=== PATIENT | male | born 1990 | race Caucasian/White ===

== ENCOUNTER 2021-09-13 19:40 | Inpatient (IN) ==
[2021-09-13] MEDS ORDERED: LORazepam 1 MG TAB PO STA (20:03)
[2021-09-13 20:30] LABS: Basophils # (auto) 0.02 K/uL (0-0.2); Basophils % (auto) 0.3 %; Eosinophils # (auto) 0.05 K/uL (0-0.50); Eosinophils % (auto) 0.7 %; Hematocrit (blood only) 42.6 % (40.1-51.0); Hemoglobin 15.4 g/dl (14.0-18.0); Immature Granulocytes # (auto) 0.01 K/uL (0.00-0.02); Immature Granulocytes % (auto) 0.1 %; Lymphocytes # (auto) 2.56 K/uL (1.2-3.4); Lymphocytes % (auto) 34.9 %; Mean Corpuscular Hgb Conc 36.2 g/dL (32.0-36.0); Mean Corpuscular Volume 85.9 fL (80.0-100.0); Mean Platelet Volume 9.1 fL (9.4-12.4); Monocytes # (auto) 0.74 K/uL (0.24-0.82); Monocytes % (auto) 10.1 %; Neutrophils # (auto) 3.96 K/uL (1.4-6.5); Neutrophils % (auto) 53.9 %; Platelet Count 248 K/uL (130-400); RDW Coefficient of Variation 11.9 % (11.5-14.5); RDW Standard Deviation 37.2 fL (36.4-46.3); Red Blood Count 4.96 M/uL (4.63-6.08); White Blood Count 7.34 K/ul (4.8-10.8)
--- NOTE | 2021-09-13 20:30 | Emergency Department Note ---
Impression & Plan Mood disorder ED Provider Note INFORMANT: Patient ED PROVIDER(S): Matt Mcfarland MD CHIEF COMPLAINT: Mental health evaluation PLAN: Disposition: Admitted Condition: Good Outpatient prescription management: none Referral: None MEDICAL DECISION MAKING: Patient presented because of anxiety, feeling very stressed and having suicidal thoughts. Blood work was done. Urinalysis performed. Patient was given an oral dose of Ativan as he was extremely anxious. he was evaluated by the ER onsite case manager. The patient had unremarkable laboratory studies. He felt better after the Ativan and onsite case manager evaluation. We discussed inpatient treatment and patient was in agreement. 3 S. was consulted. Patient was evaluated and then accepted for voluntary admission. Triage Nursing notes reviewed and agree them. Vital Signs: reviewed and remarkable for no significant abnormalities Differential diagnosis: Mood disorder, infection, hypoglycemia, electrolyte abnormalities, cardiac sources, intracerebral event, toxicologic, trauma, neurologic, as well as other pathologies. Diagnostics interpreted by me: ECG: none Cardiac Monitoring: none Imaging studies: Deferred HPI: The patient is a 31year old male who presents to the Emergency Room with complaints of anxiety and suicidal ideation. This started over the last week and is worsening. The patient also notes the following associated symptoms, poor sleep, anxiety, racing thoughts, poor p.o. intake. The patient has found no relieving factors. Current pain is rated as 0/10. Patient states he was not eating or sleeping well. He had a syncopal event and had an ER evaluation for that 4 days ago. No significant findings were noted. Pt denies recurrent LOC, headache, fevers, chills, diaphoresis, visual changes, neck pain, chest pain, breathing difficulties, nausea, vomiting, abdominal pain, back pain, melena, hematochezia, urinary symptoms, numbness, weakness, lymphadenopathy, rash, or other complaints. ROS: See above HPI for pertinent positives & negatives. A total of 10 systems reviewed and were otherwise negative. PAST MEDICAL HISTORY:See Below , syncope PAST SURGICAL HISTORY:See Below, FAMILY HISTORY:See Below SOCIAL HISTORY:See Below, employed as a EMPLOYMENT PROGRAMS ANALYST HOME MEDICATIONS:See Below ALLERGIES:See Below VITALS:See Below PHYSICAL EXAMINATION: GENERAL: Awake, alert, very anxious-appearing, in no distress HENT: Normocephalic, atraumatic. Oropharynx unremarkable. EYES: Normal conjunctiva. Sclera non-icteric. NECK: Inspection normal. Non-tender. Supple. No nuchal rigidity. FROM. No masses. RESPIRATORY: Clear to auscultation. No wheezes. No rales. Normal respiratory ef fort. CARDIAC: Normal rate. Normal rhythm. No murmurs. No rubs. Extremities warm and well perfused. Pulses equal. No JVD. GI: Soft, non-distended. No tenderness to palpation. No rebound or guarding. No masses. RECTAL: Deferred. MUSCULOSKELETAL: Atraumatic. Chest examination reveals no tenderness. The back is symmetrical on inspection without obvious abnormality. There is no CVA tenderness to palpation. No joint edema. LOWER EXTREMITIES: Calves are equal size bilaterally and non-tender. No edema. No discoloration. NEURO: Normal sensorium. No sensory or motor deficits noted. SKIN: No rash or jaundice noted. EYE: Anxious mood. Depressed appearing. Positive SI. No HI. No hallucinations or delusions. Matt Mcfarland MD Past Med/Surg History Medical History No pertinent past medical history Social History Smoking Status: Never smoker Preferred Language: Ethiopian Communication Ability: Effective Hat Lining Paster Required: No Beliefs That Will Affect Care: None Feels Safe at Home: Yes Assistive Devices: Glasses Allergies Allergies Allergy/AdvReac Type Severity Reaction Status Date / Time No Known Allergies Allergy Verified 09/13/21 21:11 Home Meds Home Medications Medication Instructions Recorded Confirmed paroxetine HCl 20 mg tablet 20 mg PO QS 09/13/21 09/13/21 Results & Data (ED) Vital Signs Vital Signs - 24 hr 09/13/21 19:42 09/13/21 21:57 Temperature 37.3 C Temperature Source Temporal Artery Scan Pulse Rate 97 H Pulse Rate [Left Finger] 79 Pulse Rhythm Regular Pulse Rhythm [Left Finger] Regular Pulse Strength Normal Pulse Strength [Left Finger] Normal Respiratory Rate 17 16 Respiratory Effort / Characteristics Non-Labored Spontaneous Non-Labored Spontaneous Respiratory Depth Normal Normal Respiratory Pattern Regular Regular Blood Pressure 145/87 H Blood Pressure [Right Arm] 124/90 Blood Pressure Mean 106 Blood Pressure Mean [Right Arm] 101 Blood Pressure Position Sitting Blood Pressure Position [Right Arm] Lying Pulse Oximetry 96 98 Oxygen Delivery Method Room Air Room Air Sepsis Recent Fever Within 48 Hours No Sepsis New/Unexplained Change in Mental Status N/A Sepsis Action Taken by Nursing No Action Required Laboratory Data Result diagrams: 09/13/21 20:14 09/13/21 20:14 Lab Results 09/13/21 09/13/21 09/13/21 Range/Units 20:14 20:14 20:14 WBC 7.34 (4.8-10.8) K/ul RBC 4.96 (4.63-6.08) M/uL Hgb 15.4 (14.0-18.0) g/dl Hct 42.6 (40.1-51.0) % MCV 85.9 (80.0-100.0) fL MCH 31.0 (25.0-34.0) pg MCHC 36.2 H (32.0-36.0) g/dL RDW Std Deviation 37.2 (36.4-46.3) fL RDW Coeff of Jay 11.9 (11.5-14.5) % Plt Count 248 (130-400) K/uL MPV 9.1 L (9.4-12.4) fL Immature Gran % (Auto) 0.1 % Neut % (Auto) 53.9 % Lymph % (Auto) 34.9 % [place] % (Auto) 10.1 % Eos % (Auto) 0.7 % Baso % (Auto) 0.3 % Neut # (Auto) 3.96 (1.4-6.5) K/uL Lymph # (Auto) 2.56 (1.2-3.4) K/uL [place] # (Auto) 0.74 (0.24-0.82) K/uL Eos # (Auto) 0.05 (0-0.50) K/uL Baso # (Auto) 0.02 (0-0.2) K/uL Immature Gran # (Auto) 0.01 (0.00-0.02) K/uL Sodium 139 (136-145) mmol/L Potassium 3.5 (3.5-5.1) mmol/L Chloride 108 H (98-107) mmol/L Carbon Dioxide 22 (21-32) mmol/L Anion Gap 9 (3-11) BUN 13 (6-23) mg/dl Creatinine 0.95 (0.6-1.4) mg/dl Est Cr Clr Drug Dosing 60.5 ml/min Est GFR ( Amer) 124.9 ml/min Est GFR (Non-Af Amer) 107.7 ml/min BUN/Creatinine Ratio 13.7 (10-20) Glucose 96 (70-99(Fasting)) mg/dl Calcium 8.9 (8.5-10.1) mg/dl Total Bilirubin 0.8 (0.2-1.0) mg/dl AST 16 (13-39) U/L ALT 13 (7-52) U/L Alkaline Phosphatase 47 (34-104) U/L Total Protein 7.4 (6.0-8.3) gm/dl Albumin 4.6 (3.4-5.0) gm/dl Globulin 2.8 (2.5-4.0) gm/dl Albumin/Globulin Ratio 1.6 (0.9-2) TSH 1.552 (0.300-4.500) uIu/ml Urine Color Urine Appearance (Clear) Urine pH (4.5-7.5) Ur Specific [place] (1.000-1.030) Urine Protein (Negative) Urine Glucose (UA) (Negative) Urine Ketones (Negative) Urine Blood (Negative) Urine Nitrite (Negative) Urine Bilirubin (Negative) Urine Urobilinogen (Negative) Ur Leukocyte Esterase (Negative) Salicylates (3.0-30) mg/dl Urine Opiates Screen (Neg) Ur Methadone, Qual (Neg) Acetaminophen (10-30) ug/ml Urine Barbiturates (Neg) Ur Phencyclidine (PCP) (Neg) U Amphetamin/Meth Scrn (Neg) MDMA (Ecstasy) Screen (Neg) U Benzodiazepines Scrn (Neg) Ur Cocaine Metabolite (Neg) U Marijuana (THC) Screen (Neg) Ethyl Alcohol mg/dL (<10.0) mg/dl SARS-CoV-2, RNA, NAAT (NEGATIVE) 09/13/21 09/13/21 09/13/21 Range/Units 20:14 20:14 20:14 WBC (4.8-10.8) K/ul RBC (4.63-6.08) M/uL Hgb (14.0-18.0) g/dl Hct (40.1-51.0) % MCV (80.0-100.0) fL MCH (25.0-34.0) pg MCHC (32.0-36.0) g/dL RDW Std Deviation (36.4-46.3) fL RDW Coeff of Jay (11.5-14.5) % Plt Count (130-400) K/uL MPV (9.4-12.4) fL Immature Gran % (Auto) % Neut % (Auto) % Lymph % (Auto) % [place] % (Auto) % Eos % (Auto) % Baso % (Auto) % Neut # (Auto) (1.4-6.5) K/uL Lymph # (Auto) (1.2-3.4) K/uL [place] # (Auto) (0.24-0.82) K/uL Eos # (Auto) (0-0.50) K/uL Baso # (Auto) (0-0.2) K/uL Immature Gran # (Auto) (0.00-0.02) K/uL Sodium (136-145) mmol/L Potassium (3.5-5.1) mmol/L Chloride (98-107) mmol/L Carbon Dioxide (21-32) mmol/L Anion Gap (3-11) BUN (6-23) mg/dl Creatinine (0.6-1.4) mg/dl Est Cr Clr Drug Dosing ml/min Est GFR ( Amer) ml/min Est GFR (Non-Af Amer) ml/min BUN/Creatinine Ratio (10-20) Glucose (70-99(Fasting)) mg/dl Calcium (8.5-10.1) mg/dl Total Bilirubin (0.2-1.0) mg/dl AST (13-39) U/L ALT (7-52) U/L Alkaline Phosphatase (34-104) U/L Total Protein (6.0-8.3) gm/dl Albumin (3.4-5.0) gm/dl Globulin (2.5-4.0) gm/dl Albumin/Globulin Ratio (0.9-2) TSH (0.300-4.500) uIu/ml Urine Color Urine Appearance (Clear) Urine pH (4.5-7.5) Ur Specific [place] (1.000-1.030) Urine Protein (Negative) Urine Glucose (UA) (Negative) Urine Ketones (Negative) Urine Blood (Negative) Urine Nitrite (Negative) Urine Bilirubin (Negative) Urine Urobilinogen (Negative) Ur Leukocyte Esterase (Negative) Salicylates < 3.0 L (3.0-30) mg/dl Urine Opiates Screen (Neg) Ur Methadone, Qual (Neg) Acetaminophen < 3 L (10-30) ug/ml Urine Barbiturates (Neg) Ur Phencyclidine (PCP) (Neg) U Amphetamin/Meth Scrn (Neg) MDMA (Ecstasy) Screen (Neg) U Benzodiazepines Scrn (Neg) Ur Cocaine Metabolite (Neg) U Marijuana (THC) Screen (Neg) Ethyl Alcohol mg/dL < 10.0 (<10.0) mg/dl SARS-CoV-2, RNA, NAAT NEGATIVE (NEGATIVE) 09/13/21 09/13/21 Range/Units 20:20 20:20 WBC (4.8-10.8) K/ul RBC (4.63-6.08) M/uL Hgb (14.0-18.0) g/dl Hct (40.1-51.0) % MCV (80.0-100.0) fL MCH (25.0-34.0) pg MCHC (32.0-36.0) g/dL RDW Std Deviation (36.4-46.3) fL RDW Coeff of Jay (11.5-14.5) % Plt Count (130-400) K/uL MPV (9.4-12.4) fL Immature Gran % (Auto) % Neut % (Auto) % Lymph % (Auto) % [place] % (Auto) % Eos % (Auto) % Baso % (Auto) % Neut # (Auto) (1.4-6.5) K/uL Lymph # (Auto) (1.2-3.4) K/uL [place] # (Auto) (0.24-0.82) K/uL Eos # (Auto) (0-0.50) K/uL Baso # (Auto) (0-0.2) K/uL Immature Gran # (Auto) (0.00-0.02) K/uL Sodium (136-145) mmol/L Potassium (3.5-5.1) mmol/L Chloride (98-107) mmol/L Carbon Dioxide (21-32) mmol/L Anion Gap (3-11) BUN (6-23) mg/dl Creatinine (0.6-1.4) mg/dl Est Cr Clr Drug Dosing ml/min Est GFR ( Amer) ml/min Est GFR (Non-Af Amer) ml/min BUN/Creatinine Ratio (10-20) Glucose (70-99(Fasting)) mg/dl Calcium (8.5-10.1) mg/dl Total Bilirubin (0.2-1.0) mg/dl AST (13-39) U/L ALT (7-52) U/L Alkaline Phosphatase (34-104) U/L Total Protein (6.0-8.3) gm/dl Albumin (3.4-5.0) gm/dl Globulin (2.5-4.0) gm/dl Albumin/Globulin Ratio (0.9-2) TSH (0.300-4.500) uIu/ml Urine Color Dark Yellow Urine Appearance Clear (Clear) Urine pH 6.5 (4.5-7.5) Ur Specific [place] 1.031 H (1.000-1.030) Urine Protein Negative (Negative) Urine Glucose (UA) Negative (Negative) Urine Ketones Trace H (Negative) Urine Blood Negative (Negative) Urine Nitrite Negative (Negative) Urine Bilirubin Negative (Negative) Urine Urobilinogen Negative (Negative) Ur Leukocyte Esterase Negative (Negative) Salicylates (3.0-30) mg/dl Urine Opiates Screen Neg (Neg) Ur Methadone, Qual Neg (Neg) Acetaminophen (10-30) ug/ml Urine Barbiturates Neg (Neg) Ur Phencyclidine (PCP) Neg (Neg) U Amphetamin/Meth Scrn Neg (Neg) MDMA (Ecstasy) Screen Neg (Neg) U Benzodiazepines Scrn Neg (Neg) Ur Cocaine Metabolite Neg (Neg) U Marijuana (THC) Screen Pos H (Neg) Ethyl Alcohol mg/dL (<10.0) mg/dl SARS-CoV-2, RNA, NAAT (NEGATIVE) Administered Medications Hydroxyzine HCl (Hydroxyzine Hcl 25 Mg Tab) 50 mg PO HSZ PRN PRN Reason: Insomnia Stop: 10/13/21 23:31 Last Admin: 09/14/21 00:02 Dose: 50 mg Documented By: EW Discontinued Medications Lorazepam (Lorazepam 1 Mg Tab) 1 mg PO NOW STA Stop: 09/13/21 20:04 Last Admin: 09/13/21 20:27 Dose: 1 mg Documented By: SS Discharge Plan Visit Data Chief Complaint: Mental Health Evaluation Stated Complaint: [facility] ED Provider: Matt Mcfarland Discharge Problem: Mood disorder Patient Disposition: Admitted As Inpatient Discharge Instructions Interventions: ED Discharge Assessment Last Done: 09/13/21 23:07
[2021-09-13 20:48] LABS: Albumin Globulin Ratio 1.6 (0.9-2); Albumin Level 4.6 gm/dl (3.4-5.0); BUN Creatinine Ratio 13.7 (10-20); Bilirubin,Total 0.8 mg/dl (0.2-1.0); Calcium 8.9 mg/dl (8.5-10.1); Creatinine Clr Calc Pharmacy 60.5 ml/min; Est GFR (African American) 124.9 ml/min; Est GFR (Non-African American) 107.7 ml/min; Globulin 2.8 gm/dl (2.5-4.0); Potassium 3.5 mmol/L (3.5-5.1); Total Protein 7.4 gm/dl (6.0-8.3)
[2021-09-13 20:57] LABS: Acetaminophen < 3 ug/ml (10-30); Salicylate < 3.0 mg/dl (3.0-30)
[2021-09-13 20:59] LABS: Appearance Urine Clear (Clear); Bilirubin Urine Negative (Negative); Blood Urine Negative (Negative); Color Urine Dark Yellow; Glucose Urine UA Negative (Negative); Ketones Urine Trace (Negative); Leukocyte Esterase Urine Negative (Negative); Nitrite Urine Negative (Negative); Protein Urine Negative (Negative); Specific Gravity Urine 1.031 (1.000-1.030); Urobilinogen Urine Negative (Negative); pH Urine 6.5 (4.5-7.5)
[2021-09-13 21:27] LABS: Amphetamines+Metham, Urine Neg (Neg); Barbiturates, Urine Neg (Neg); Benzodiazepine, Urine Neg (Neg); Cocaine, Urine Neg (Neg); MDMA (Ecstacy), Urine Neg (Neg); Methadone, Urine Neg (Neg); Opiate, Urine Neg (Neg); Phencyclidine, Urine Neg (Neg)
[2021-09-13] MEDS ORDERED: ALUMINUM/MAGNESIUM SUSP 30 ML UDC PO PRN (23:32)
[2021-09-13] MEDS ORDERED: BISMUTH SUBSALICYLATE LIQD 236 ML PO PRN (23:32)
[2021-09-13] MEDS ORDERED: SODIUM CHLORIDE 0.65% NA SOLN 45 ML (OCEAN) PRN (23:32)
[2021-09-13] MEDS ORDERED: MAGNESIUM HYDROXIDE SUSP 30 ML UDC PO PRN (23:32)
[2021-09-13] MEDS ORDERED: ACETAMINOPHEN 325 MG TAB PO PRN (23:32)
[2021-09-14] MEDS: hydrOXYzine HCl 25 MG TAB PO PRN (00:02)
[2021-09-14] MEDS ORDERED: PARoxetine HCL 20 MG TAB PO SCH (09:00)
--- NOTE | 2021-09-14 09:11 | History & Physical ---
Date of Service September 14, 2021 Impression / Recommendations Impression The patient is a 31 year old man who was admitted for worsening depression, anxiety and SI with plan to overdose in the context of worsening stress and a recent breakup. Diagnostically consistent with MDD, severe with anxious distress, has some longer term symptoms of possible ADHD given long history of concentration difficulties but difficult to fully assess in context of current anxiety and depression. The patient is deemed unstable and requires psychiatric hospitalization for diagnostic clarification, safety and stabilization, medication management and development of further coping skills. Discussed medication treatment options in detail. Discussed risks, benefits and alternatives including SSRI vs Wellbutrin, mirtazapine. Patient would like to start and consented to Wellbutrin and Remeron for MDD. Reviewed side effects including but not limited to: GI, ECHEVERRIA, sexual side effects, potential for increased anxiety, increased heart rate and BP, and counseled on black box warning of potential for emergence of or increased SI and need to let staff know should this occur or should they feel unsafe. Also discussed importance of seeking emergency care following discharge if this side effect occurs in the future. Reviewed labwork given recent nausea/diarrhea, electrolytes stable to start Wellbutrin, no history of seziures. (1) Severe single episode of major depressive disorder with anxiety: (2) Suicidal ideation: Plan 09/14/21: The patient was admitted to the [facility] ([facility] mental health unit) on q15 min checks (behavioral with suicide precautions) for safety. The patient will participate in group, recreational, and milieu therapies and will be offered additional individual and family sessions as clinically appropriate. 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 Risk Factors Assessment Male: Yes : Yes Do You Have Access To A Gun?: No Health Problems: No Mental Health Diagnoses: Yes Substance Use Disorders: No Previous Attempt: No Family History of Suicide: No Previous Psychiatric Hospitalization: No Hopelessness: Yes Protective Factors Assessment Employed: Yes ([employer]) Stable Relationships: Yes Supportive Family: Yes Psychiatric History Identifying Data ASHLEE QUINN is a 31-year-old M who currently lives in [place] with his brother, has no significant psychiatric history, and was admitted on 09/13/21 22:40 on a 201 voluntary commitment for depression and SI with a plan. Chief Complaint "I just feel kind of numb". History of Present Illness Ashlee presents for psychiatric admission for worsening depression, anxiety and SI with a plan of overdosing on tylenol or benadryl in the context of a recent breakup last week and stress from the finals of school. He presented to the ED as he felt unable to remain safe at home due to intensifying SI. He told his family he was going camping so they wouldn't worry that he's here. He endorses worsening depression symptoms over the last two weeks including hopelessness, helplessness, worthlessness, self-guilt, decreased energy, decreased motivation, anhedonia (used to enjoy movies and now no interest in watching then or playing card games), decreased sleep, decreased appetite with weight loss of about 15lbs over the last two weeks due to nausea and diarrhea, long history of difficulty with concentration and SI. He endorses anxiety symptoms including excessive worry, restlessness, fatigue, some irritability, muscle tension, insomnia, and maybe a panic attack this last week that came on out of nowhere. He previously took Paxil 20mg in late June for about 1 week for stress related to finals and then stopped it and then restarted it at 20mg last week after the breakup. He's noticed restlessness from the Paxil. He was taking it at night. Further history per note by reclamation supervisor on 09/13/21: "He feels like his "mind shattered into pieces" and has struggled eating and drinking since. He is only sleeping about 3 hours a night, causing him daytime sleepiness and interfering with his work. When asked about SI, he became tearful and admitted that he has had thoughts of killing himself. He states he does not want to do that because he has family who loves and cares for him, yet nonetheless the thoughts persist. He has had them for about two weeks now and has difficulty controlling them. He has thought of overdosing on Tylenol or Benadryl as a means to do this, but has not made any effort to complete this plan." He had a syncopal event earlier this week and was evaluated in the ED and treated for dehydration. Had a history of diverticulitis a few months ago with similar GI symptoms and a bland diet helped. Psychiatric ROS notable for no history of cece, psychosis, OCD, PTSD or eating disorder including no history of binging/purging. Past Psychiatric History Current Psychiatric Diagnosis: n/a Outpatient Services: has upcoming therapy appointment at a [facility], hasn't started this yet Previous Psych Admissions: none Do You Have Access To A Gun?: No History of Previous Suicide Attempt: No Past Head Trauma/Neuro History History of Concussion/Seizure: Yes (concussion when in the [email or web address] about 10 years ago, LOC ) Allergies Allergy/AdvReac Type Severity Reaction Status Date / Time No Known Allergies Allergy Verified 09/13/21 21:11 Home Medications Medication Instructions Recorded Confirmed Type paroxetine HCl 20 mg tablet 20 mg PO QS 09/13/21 09/13/21 History Family History Family History of: Anxiety (brother ) Alcohol History Hx of Alcohol Use Over the Past 12 Months: Yes (2-4 times a month) AUDIT Total Score: 4 Smoking Use Have You Smoked or Used Tobacco Products in the Last 30 Days: No Smoking Status: Never smoker Substance History Hx of Prescription Med Misuse Over the Past 12 Months: No Hx of Over the Counter Med Misuse Over the Past 12 Months: No Hx of Inhalent Misuse Over the Past 12 Months: No Hx of Organic Substance Use Over the Past 12 Months: Yes (said he tried marijuana, "wasn't for him") Hx of Illegal Substances/Street Drug Use Over Past 12 Months: No Problems as a Result of Past Substance Use: None Identified Tried cannabis once at the beginning of July, none since. Personal History Living Arrangements: Home Childhood: Raised all over due to his father being in the , has three younger brothers. Parents are and live in [place]. Served in the [employer] in the past. Highest Grade Completed: Some College Employment Status: Manager Gaming Employed ([employer] and enrolled to begin RN program at [employer] ) Marital Status: Single Number Of Children: 0 Beliefs That Will Affect Care: None Current Legal Problems: No Hx Legal Problems: No Hx Traumatic Life Events: No Patient History Medical History No pertinent past medical history Social History Smoking Status: Never smoker Preferred Language: Mauritian Communication Ability: Effective Appliance Technician Required: No Beliefs That Will Affect Care: None Feels Safe at Home: Yes Assistive Devices: Glasses Review of Systems Review of Systems: All systems reviewed & are unremarkable except as noted in HPI & below Physical Exam Psychiatric: Orientation: alert and oriented x 3 Apperance: appropriately dressed and appropriately groomed Eye Contact: good eye contact Motor Behavior: no abnormal motor movements Speech: normal rate/rhythm/volume of speech Affect: + depressed affect and + anxious affect Mood: + depressed mood and + anxious mood Thought Process: goal directed thought process Thought Content: reality based without delusions Suicidal Thoughts: denies suicidal plan and denies suicidal intent; + reports suicidal thoughts (no currently but SI with plan prior to admission last night) Homicidal Thoughts: denies homicidal thoughts Hallucinations: no auditory hallucinations and no visual hallucinations Cognition: recent memory grossly intact, remote memory grossly intact, attention grossly intact and language grossly intact Estimated Intelligence: consistent with education level Insight: + fair insight Judgement: + fair judgement Vital Signs (Past 24 Hours): Last Vital Signs Temp 36.5 C 09/14/21 06:30 Pulse 68 09/14/21 06:30 Resp 16 09/14/21 06:30 BP 126/73 09/14/21 06:30 Pulse Ox 98 09/13/21 21:57 O2 Del Method 09/13/21 21:57 Exam Statement: A physical exam was performed in the ED by Dr. Mcfarland for the purposes of medical clearance. I accept that physical as correct and adequate for the purposes of the inpatient physical exam. Results & Data ([facility]) Laboratory Results Laboratory Results - last 24 hr 09/13/21 09/13/21 09/13/21 20:14 20:14 20:14 WBC 7.34 RBC 4.96 Hgb 15.4 Hct 42.6 MCV 85.9 MCH 31.0 MCHC 36.2 H RDW Std Deviation 37.2 RDW Coeff of Jay 11.9 Plt Count 248 MPV 9.1 L Immature Gran % (Auto) 0.1 Neut % (Auto) 53.9 Lymph % (Auto) 34.9 Keith % (Auto) 10.1 Eos % (Auto) 0.7 Baso % (Auto) 0.3 Neut # (Auto) 3.96 Lymph # (Auto) 2.56 Keith # (Auto) 0.74 Eos # (Auto) 0.05 Baso # (Auto) 0.02 Immature Gran # (Auto) 0.01 Sodium 139 Potassium 3.5 Chloride 108 H Carbon Dioxide 22 Anion Gap 9 BUN 13 Creatinine 0.95 Est Cr Clr Drug Dosing 60.5 Est GFR ( Amer) 124.9 Est GFR (Non-Af Amer) 107.7 BUN/Creatinine Ratio 13.7 Glucose 96 Calcium 8.9 Total Bilirubin 0.8 AST 16 ALT 13 Alkaline Phosphatase 47 Total Protein 7.4 Albumin 4.6 Globulin 2.8 Albumin/Globulin Ratio 1.6 TSH 1.552 Urine Color Urine Appearance Urine pH Ur Specific [place] Urine Protein Urine Glucose (UA) Urine Ketones Urine Blood Urine Nitrite Urine Bilirubin Urine Urobilinogen Ur Leukocyte Esterase Salicylates Urine Opiates Screen Ur Methadone, Qual Acetaminophen Urine Barbiturates Ur Phencyclidine (PCP) U Amphetamin/Meth Scrn MDMA (Ecstasy) Screen U Benzodiazepines Scrn Ur Cocaine Metabolite U Marijuana (THC) Screen U Marijuana THC Carboxy Drug Screen Comment Ethyl Alcohol mg/dL SARS-CoV-2, RNA, NAAT 09/13/21 09/13/21 09/13/21 20:14 20:14 20:14 WBC RBC Hgb Hct MCV MCH MCHC RDW Std Deviation RDW Coeff of Jay Plt Count MPV Immature Gran % (Auto) Neut % (Auto) Lymph % (Auto) Keith % (Auto) Eos % (Auto) Baso % (Auto) Neut # (Auto) Lymph # (Auto) Keith # (Auto) Eos # (Auto) Baso # (Auto) Immature Gran # (Auto) Sodium Potassium Chloride Carbon Dioxide Anion Gap BUN Creatinine Est Cr Clr Drug Dosing Est GFR ( Amer) Est GFR (Non-Af Amer) BUN/Creatinine Ratio Glucose Calcium Total Bilirubin AST ALT Alkaline Phosphatase Total Protein Albumin Globulin Albumin/Globulin Ratio TSH Urine Color Urine Appearance Urine pH Ur Specific [place] Urine Protein Urine Glucose (UA) Urine Ketones Urine Blood Urine Nitrite Urine Bilirubin Urine Urobilinogen Ur Leukocyte Esterase Salicylates < 3.0 L Urine Opiates Screen Ur Methadone, Qual Acetaminophen < 3 L Urine Barbiturates Ur Phencyclidine (PCP) U Amphetamin/Meth Scrn MDMA (Ecstasy) Screen U Benzodiazepines Scrn Ur Cocaine Metabolite U Marijuana (THC) Screen U Marijuana THC Carboxy Drug Screen Comment Ethyl Alcohol mg/dL < 10.0 SARS-CoV-2, RNA, NAAT NEGATIVE 09/13/21 09/13/21 09/13/21 20:20 20:20 20:20 WBC RBC Hgb Hct MCV MCH MCHC RDW Std Deviation RDW Coeff of Jay Plt Count MPV Immature Gran % (Auto) Neut % (Auto) Lymph % (Auto) Keith % (Auto) Eos % (Auto) Baso % (Auto) Neut # (Auto) Lymph # (Auto) Keith # (Auto) Eos # (Auto) Baso # (Auto) Immature Gran # (Auto) Sodium Potassium Chloride Carbon Dioxide Anion Gap BUN Creatinine Est Cr Clr Drug Dosing Est GFR ( Amer) Est GFR (Non-Af Amer) BUN/Creatinine Ratio Glucose Calcium Total Bilirubin AST ALT Alkaline Phosphatase Total Protein Albumin Globulin Albumin/Globulin Ratio TSH Urine Color Dark Yellow Urine Appearance Clear Urine pH 6.5 Ur Specific [place] 1.031 H Urine Protein Negative Urine Glucose (UA) Negative Urine Ketones Trace H Urine Blood Negative Urine Nitrite Negative Urine Bilirubin Negative Urine Urobilinogen Negative Ur Leukocyte Esterase Negative Salicylates Urine Opiates Screen Neg Ur Methadone, Qual Neg Acetaminophen Urine Barbiturates Neg Ur Phencyclidine (PCP) Neg U Amphetamin/Meth Scrn Neg MDMA (Ecstasy) Screen Neg U Benzodiazepines Scrn Neg Ur Cocaine Metabolite Neg U Marijuana (THC) Screen Pos H U Marijuana THC Carboxy Pending Drug Screen Comment Pending Ethyl Alcohol mg/dL SARS-CoV-2, RNA, NAAT Current Inpatient Medications Current Inpatient Medications: Current Inpatient Medications Acetaminophen (Acetaminophen 325 Mg Tab) 650 mg PO Q4H PRN PRN Reason: Headache or Minor Fever Stop: 10/13/21 23:31 Al Hydrox/Mg Hydrox/Simethicone (Aluminum/Magnesium Susp 30 Ml Udc) 30 ml PO Q4H PRN PRN Reason: GI Upset Stop: 10/13/21 23:31 Bismuth Subsalicylate (Bismuth Subsalicylate Liqd 236 Ml) 15 ml PO PRN PRN PRN Reason: Loose Stool Stop: 10/13/21 23:31 Hydroxyzine HCl (Hydroxyzine Hcl 25 Mg Tab) 50 mg PO HSZ PRN PRN Reason: Insomnia Stop: 10/13/21 23:31 Last Admin: 09/14/21 00:02 Dose: 50 mg Hydroxyzine HCl (Hydroxyzine Hcl 25 Mg Tab) 25 mg PO Q4H PRN PRN Reason: Anxiety Stop: 10/13/21 23:31 Magnesium Hydroxide (Magnesium Hydroxide Susp 30 Ml Udc) 30 ml PO DAILY PRN PRN Reason: Constipation Stop: 10/13/21 23:31 Paroxetine HCl (Paroxetine Hcl 20 Mg Tab) 20 mg PO QAM MALIKA Stop: 10/14/21 08:59 Last Admin: 09/14/21 08:54 Dose: 20 mg Sodium Chloride (Sodium Chloride 0.65% Na Soln 45 Ml ([place])) 1 - 2 sprays NA PRN PRN PRN Reason: Nasal Dryness/Congestion Stop: 10/13/21 23:31
[2021-09-14] MEDS: MIRTAZAPINE TAB 15 MG TAB PO SCH (21:35)
[2021-09-15] MEDS: buPROPion XL 150 MG TABCR PO SCH (09:07)
[2021-09-15] MEDS: hydrOXYzine HCl 25 MG TAB PO PRN ×2 (09:28→14:45)
--- NOTE | 2021-09-15 18:04 | Psychiatric Progress Note ---
Date of Service September 15, 2021 Impression / Recommendations Impression The patient is a 31 year old man who was admitted for worsening depression, anxiety and SI with plan to overdose in the context of worsening stress and a recent breakup. Diagnostically consistent with MDD, severe with anxious distress, has some longer term symptoms of possible ADHD given long history of concentration difficulties but difficult to fully assess in context of current anxiety and depression. The patient is deemed unstable and requires psychiatric hospitalization for diagnostic clarification, safety and stabilization, medication management and development of further coping skills. 09/15/21: Ongoing severe depression and anxiety with suicidal ideation with plan, feels safe in the hospital. Tolerating initiation of Wellbutrin and mirtazapine. Mirtazapine may have contributed to nightmares though he feels this was more related to the recent break-up and stressors leading to hospitalization; he would like to continue with mirtazapine, we will monitor to ensure no worsening of nightmares if this reoccurs we will consider discontinuation and alternative medication to help with sleep. (1) Severe single episode of major depressive disorder with anxiety: (2) Suicidal ideation: Plan 09/15/2021: Continue with current medications and treatment plan. 09/14/21: The patient was admitted to the [facility] ([facility] unit) on q15 min checks (behavioral with suicide precautions) for safety. The patient will participate in group, recreational, and milieu therapies and will be offered additional individual and family sessions as clinically appropriate. 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 Risk Factors Assessment Male: Yes : Yes Do You Have Access To A Gun?: No Health Problems: No Mental Health Diagnoses: Yes Substance Use Disorders: No Previous Attempt: No Family History of Suicide: No Previous Psychiatric Hospitalization: No Hopelessness: Yes Protective Factors Assessment Employed: Yes ([employer]) Stable Relationships: Yes Supportive Family: Yes Interval History Identifying Information ASHLEE QUINN is a 31-year-old M who currently lives in [place] with his brother, has no significant psychiatric history, and was admitted on 09/13/21 22:40 on a 201 voluntary commitment for depression and SI with a plan. Chief Complaint "My suicidal thoughts were really bad earlier". Review of Systems Sleep Information Total Hours of Sleep: 7 Meal Information Percent Meal Consumed - Breakfast: 0 Percent Meal Consumed - Lunch: 50 Percent Meal Consumed - Dinner: 25 Subjective Subjective Patient was seen & assessed and interval progress reviewed with treatment team nursing and social work. Ashlee reports he fell asleep well with the mirtazapine last night but had nightmares which negatively impacted his sleep. This morning he felt very depressed and anxious due to this and had intrusive suicidal ideation stating "I am glad I am here because if I was at home I think I definitely might have acted on the thoughts they were really strong". He had a decreased appetite today which she also attributes to the depression. He was ultimately able to eat some of his lunch and denies any current nausea. He did not notice any side effects from the Wellbutrin but also did not notice any benefits yet. He spoke with one of the unit counselors and found this very helpful and helped lead to a reduction in his suicidal ideation. Physical Exam Psychiatric Orientation: alert and oriented x 3 Apperance: appropriately dressed and appropriately groomed Eye Contact: good eye contact Motor Behavior: no abnormal motor movements Speech: normal rate/rhythm/volume of speech Affect: + depressed affect and + anxious affect Mood: + depressed mood and + anxious mood Thought Process: goal directed thought process Thought Content: reality based without delusions Suicidal Thoughts: denies suicidal thoughts (interimttent with plan if outside the hospital) and denies suicidal intent; + reports suicidal plan Homicidal Thoughts: denies homicidal thoughts Hallucinations: no auditory hallucinations and no visual hallucinations Cognition: recent memory grossly intact, remote memory grossly intact, attention grossly intact and language grossly intact Estimated Intelligence: consistent with education level Insight: + fair insight Judgement: + fair judgement Vital Signs (Past 24 Hours) Last Vital Signs Temp 36.5 C 09/15/21 06:43 Pulse 68 09/15/21 06:44 Resp 16 09/15/21 06:43 BP 115/69 09/15/21 06:44 Pulse Ox 98 09/13/21 21:57 O2 Del Method 09/13/21 21:57 Results & Data ([facility]) Current Inpatient Medications Current Inpatient Medications: Current Inpatient Medications Acetaminophen (Acetaminophen 325 Mg Tab) 650 mg PO Q4H PRN PRN Reason: Headache or Minor Fever Stop: 10/13/21 23:31 Al Hydrox/Mg Hydrox/Simethicone (Aluminum/Magnesium Susp 30 Ml Udc) 30 ml PO Q4H PRN PRN Reason: GI Upset Stop: 10/13/21 23:31 Bismuth Subsalicylate (Bismuth Subsalicylate Liqd 236 Ml) 15 ml PO PRN PRN PRN Reason: Loose Stool Stop: 10/13/21 23:31 Bupropion HCl (Bupropion Xl 150 Mg Tabcr) 150 mg PO QAM MALIKA Stop: 10/15/21 08:59 Last Admin: 09/15/21 09:07 Dose: 150 mg Hydroxyzine HCl (Hydroxyzine Hcl 25 Mg Tab) 50 mg PO HSZ PRN PRN Reason: Insomnia Stop: 10/13/21 23:31 Last Admin: 09/14/21 00:02 Dose: 50 mg Hydroxyzine HCl (Hydroxyzine Hcl 25 Mg Tab) 25 mg PO Q4H PRN PRN Reason: Anxiety Stop: 10/13/21 23:31 Last Admin: 09/15/21 14:45 Dose: 25 mg Magnesium Hydroxide (Magnesium Hydroxide Susp 30 Ml Udc) 30 ml PO DAILY PRN PRN Reason: Constipation Stop: 10/13/21 23:31 Mirtazapine (Mirtazapine Tab 15 Mg Tab) 7.5 mg PO HS MALIKA Stop: 10/14/21 21:59 Last Admin: 09/14/21 21:35 Dose: 7.5 mg Sodium Chloride (Sodium Chloride 0.65% Na Soln 45 Ml ([place])) 1 - 2 sprays NA PRN PRN PRN Reason: Nasal Dryness/Congestion Stop: 10/13/21 23:31 Mental Health & Subst Abuse Tx Therapist Name of Therapist: [facility] Name of Furnace Cooler: n/a Post Discharge Appointments Primary Care Physician Name Of Family Doctor: Dr Montoya
[2021-09-15 18:56] LABS: Marijuana Quant, GCMS Urine 68 ng/mL (<5)
[2021-09-15] MEDS: MIRTAZAPINE TAB 15 MG TAB PO SCH (22:03)
[2021-09-16] MEDS: hydrOXYzine HCl 25 MG TAB PO PRN ×2 (08:51→15:45)
[2021-09-16] MEDS: buPROPion XL 150 MG TABCR PO SCH (08:51)
--- NOTE | 2021-09-16 15:43 | Psychiatric Progress Note ---
Date of Service September 16, 2021 Impression / Recommendations Impression The patient is a 31 year old man who was admitted for worsening depression, anxiety and SI with plan to overdose in the context of worsening stress and a recent breakup. Diagnostically consistent with MDD, severe with anxious distress, has some longer term symptoms of possible ADHD given long history of concentration difficulties but difficult to fully assess in context of current anxiety and depression. The patient is deemed unstable and requires psychiatric hospitalization for diagnostic clarification, safety and stabilization, medication management and development of further coping skills. 09/16/21: Ongoing severe depression and anxiety with suicidal ideation with plan, feels safe in the hospital. Tolerating initiation of Wellbutrin and mirtazapine. Reviewed option of starting clonidine to help with tics and as off label for anxiety which she is interested in doing and consented to starting. Reviewed side effects including but not limited to low blood pressure, rebound HTN and syncope. Remains unable to safety plan for outside of the hospital given intensity of his intrusive suicidal ideation. (1) Severe single episode of major depressive disorder with anxiety: (2) Suicidal ideation: (3) Tic disorder: Plan 09/16/21: Add clonidine 0.05 mg BID for tics, continue with mirtazapine and Wellbutrin. 09/15/2021: Continue with current medications and treatment plan. 09/14/21: The patient was admitted to the [facility] ([facility] mental health unit) on q15 min checks (behavioral with suicide precautions) for safety. The patient will participate in group, recreational, and milieu therapies and will be offered additional individual and family sessions as clinically appropriate. 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 Risk Factors Assessment Male: Yes : Yes Do You Have Access To A Gun?: No Health Problems: No Mental Health Diagnoses: Yes Substance Use Disorders: No Previous Attempt: No Family History of Suicide: No Previous Psychiatric Hospitalization: No Hopelessness: Yes Protective Factors Assessment Employed: Yes ([employer]) Stable Relationships: Yes Supportive Family: Yes Interval History Identifying Information ASHLEE QUINN is a 31-year-old M who currently lives in [place] with his brother, has no significant psychiatric history, and was admitted on 09/13/21 22:40 on a 201 voluntary commitment for depression and SI with a plan. Chief Complaint "I continue to have the suicidal thoughts I wish I was not having them". Review of Systems Sleep Information Total Hours of Sleep: 5.75 Meal Information Percent Meal Consumed - Breakfast: 100 Percent Meal Consumed - Lunch: 75 Percent Meal Consumed - Dinner: 100 Subjective Subjective Patient was seen & assessed and interval progress reviewed with treatment team nursing and social work. Ashlee had better sleep last night had a lucid dream but no nightmares. He continues to tolerate the Wellbutrin and denies any side effects from this. This morning was having some thoughts of not deserving to be alive but process this with one of the counselors which helped his mood a bit. He continues to have intermittent intrusive suicidal thoughts with plans but feels safe going to staff and alerting anyone if he needs additional support. Becomes briefly tearful in recalling how yesterday he was briefly able to laugh during one of the groups that this felt really good as it has been a long time since he actually felt a moment of happiness. He describes a long history of tics that can worsen with anxiety used to be blowing his hair and now most frequently clearing his throat. Reviewed that these have not gotten any worse with the Wellbutrin and he denies any worsening of anxiety since we have started the Wellbutrin. Physical Exam Psychiatric Orientation: alert and oriented x 3 Apperance: appropriately dressed and appropriately groomed Eye Contact: good eye contact Motor Behavior: no abnormal motor movements Speech: normal rate/rhythm/volume of speech Affect: + depressed affect and + anxious affect Mood: + depressed mood and + anxious mood Thought Process: goal directed thought process Thought Content: reality based without delusions Suicidal Thoughts: denies suicidal thoughts (interimttent with plan if outside the hospital) and denies suicidal intent; + reports suicidal plan Homicidal Thoughts: denies homicidal thoughts Hallucinations: no auditory hallucinations and no visual hallucinations Cognition: recent memory grossly intact, remote memory grossly intact, attention grossly intact and language grossly intact Estimated Intelligence: consistent with education level Insight: + fair insight Judgement: + fair judgement Vital Signs (Past 24 Hours) Last Vital Signs Temp 36.4 C L 09/16/21 06:00 Pulse 55 L 09/16/21 06:58 Resp 18 09/16/21 06:00 BP 109/75 09/16/21 06:58 Pulse Ox 98 09/13/21 21:57 O2 Del Method 09/13/21 21:57 Results & Data ([facility]) Laboratory Results Laboratory Results - last 24 hr 09/13/21 20:20 U Marijuana THC Carboxy 68 H Drug Screen Comment SEE NOTE Current Inpatient Medications Current Inpatient Medications: Current Inpatient Medications Acetaminophen (Acetaminophen 325 Mg Tab) 650 mg PO Q4H PRN PRN Reason: Headache or Minor Fever Stop: 10/13/21 23:31 Al Hydrox/Mg Hydrox/Simethicone (Aluminum/Magnesium Susp 30 Ml Udc) 30 ml PO Q4H PRN PRN Reason: GI Upset Stop: 10/13/21 23:31 Bismuth Subsalicylate (Bismuth Subsalicylate Liqd 236 Ml) 15 ml PO PRN PRN PRN Reason: Loose Stool Stop: 10/13/21 23:31 Bupropion HCl (Bupropion Xl 150 Mg Tabcr) 150 mg PO QAM MALIKA Stop: 10/15/21 08:59 Last Admin: 09/16/21 08:51 Dose: 150 mg Hydroxyzine HCl (Hydroxyzine Hcl 25 Mg Tab) 50 mg PO HSZ PRN PRN Reason: Insomnia Stop: 10/13/21 23:31 Last Admin: 09/14/21 00:02 Dose: 50 mg Hydroxyzine HCl (Hydroxyzine Hcl 25 Mg Tab) 25 mg PO Q4H PRN PRN Reason: Anxiety Stop: 10/13/21 23:31 Last Admin: 09/16/21 08:51 Dose: 25 mg Magnesium Hydroxide (Magnesium Hydroxide Susp 30 Ml Udc) 30 ml PO DAILY PRN PRN Reason: Constipation Stop: 10/13/21 23:31 Mirtazapine (Mirtazapine Tab 15 Mg Tab) 7.5 mg PO HS MALIKA Stop: 10/14/21 21:59 Last Admin: 09/15/21 22:03 Dose: 7.5 mg Sodium Chloride (Sodium Chloride 0.65% Na Soln 45 Ml ([place])) 1 - 2 sprays NA PRN PRN PRN Reason: Nasal Dryness/Congestion Stop: 10/13/21 23:31 Mental Health & Subst Abuse Tx Therapist Name of Therapist: [facility] Student Accounts Manager Name of Student Accounts Manager: n/a Post Discharge Appointments Primary Care Physician Name Of Family Doctor: Dr Montoya
[2021-09-16] MEDS: cloNIDine HCL 0.1 MG TAB PO SCH (21:41)
[2021-09-16] MEDS: MIRTAZAPINE TAB 15 MG TAB PO SCH (21:43)
[2021-09-17] MEDS: buPROPion XL 150 MG TABCR PO SCH (09:19)
[2021-09-17] MEDS: cloNIDine HCL 0.1 MG TAB PO SCH ×2 (09:19→22:04)
[2021-09-17] MEDS: hydrOXYzine HCl 25 MG TAB PO PRN (13:02)
--- NOTE | 2021-09-17 17:13 | Psychiatric Progress Note ---
Date of Service September 17, 2021 Impression / Recommendations Impression The patient is a 31 year old man who was admitted for worsening depression, anxiety and SI with plan to overdose in the context of worsening stress and a recent breakup. Diagnostically consistent with MDD, severe with anxious distress, has some longer term symptoms of possible ADHD given long history of concentration difficulties but difficult to fully assess in context of current anxiety and depression. The patient is deemed unstable and requires psychiatric hospitalization for diagnostic clarification, safety and stabilization, medication management and development of further coping skills. 09/17/21: Ongoing severe depression and anxiety with intermittent suicidal ideation with plan, feels safe in the hospital. He completed his FMLA paperwork since he is currently hospitalized. He is tolerating the addition of clonidine and continues to find the mirtazapine helpful for sleep. He would like to increase the dose of Wellbutrin we reviewed potential for worsening insomnia, anxiety, and potential for worsening tics and he consented to dose increase. (1) Severe single episode of major depressive disorder with anxiety: (2) Suicidal ideation: (3) Tic disorder: Plan 09/17/21: Increase Wellbutrin to 300mg qAM. 09/16/21: Add clonidine 0.05 mg BID for tics, continue with mirtazapine and Wellbutrin. 09/15/2021: Continue with current medications and treatment plan. 09/14/21: The patient was admitted to the [facility] ([facility] mental health unit) on q15 min checks (behavioral with suicide precautions) for safety. The patient will participate in group, recreational, and milieu therapies and will be offered additional individual and family sessions as clinically appropriate. 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 Chief Complaint "I am okay I had some suicidal thoughts this morning but they were a little bit easier to put to the back of my mind". Review of Systems Sleep Information Total Hours of Sleep: 6.5 Meal Information Percent Meal Consumed - Breakfast: 25 Percent Meal Consumed - Lunch: 75 Percent Meal Consumed - Dinner: 100 Subjective Subjective Patient was seen & assessed and interval progress reviewed with treatment team nursing and social work. He Continues to have significantly depressed mood with intermittent intrusive suicidal ideation with plan throughout the day and periods of feelings of worthlessness. His appetite is improving and he feels he slept well last night. He had some suicidal ideation last night but was able to put it out of his mind and get some sleep. He received Vistaril as needed and has tolerated the initiation of clonidine denying any side effects from this. He feels that his tics reduce slightly in frequency and in intensity today since starting the clonidine which he is pleased about. Denies any side effects from his Wellbutrin and he would like to try going up on the dose of this. Physical Exam Psychiatric Orientation: alert and oriented x 3 Apperance: appropriately dressed and appropriately groomed Eye Contact: good eye contact Motor Behavior: no abnormal motor movements Speech: normal rate/rhythm/volume of speech Affect: + depressed affect and + anxious affect Mood: + depressed mood and + anxious mood Thought Process: goal directed thought process Thought Content: reality based without delusions Suicidal Thoughts: denies suicidal thoughts (interimttent with plan if outside the hospital) and denies suicidal intent; + reports suicidal plan Homicidal Thoughts: denies homicidal thoughts Hallucinations: no auditory hallucinations and no visual hallucinations Cognition: recent memory grossly intact, remote memory grossly intact, attention grossly intact and language grossly intact Estimated Intelligence: consistent with education level Insight: + fair insight Judgement: + fair judgement Vital Signs (Past 24 Hours) Last Vital Signs Temp 36.8 C 09/17/21 06:45 Pulse 72 09/17/21 06:46 Resp 16 09/17/21 06:45 BP 97/64 L 09/17/21 06:46 Pulse Ox 98 09/13/21 21:57 O2 Del Method 09/13/21 21:57 Results & Data ([facility]) Current Inpatient Medications Current Inpatient Medications: Current Inpatient Medications Acetaminophen (Acetaminophen 325 Mg Tab) 650 mg PO Q4H PRN PRN Reason: Headache or Minor Fever Stop: 10/13/21 23:31 Al Hydrox/Mg Hydrox/Simethicone (Aluminum/Magnesium Susp 30 Ml Udc) 30 ml PO Q4H PRN PRN Reason: GI Upset Stop: 10/13/21 23:31 Bismuth Subsalicylate (Bismuth Subsalicylate Liqd 236 Ml) 15 ml PO PRN PRN PRN Reason: Loose Stool Stop: 10/13/21 23:31 Bupropion HCl (Bupropion Xl 150 Mg Tabcr) 150 mg PO QAM MALIKA Stop: 10/15/21 08:59 Last Admin: 09/17/21 09:19 Dose: 150 mg Clonidine HCl (Clonidine Hcl 0.1 Mg Tab) 0.05 mg PO BID MALIKA Stop: 10/16/21 20:59 Last Admin: 09/17/21 09:19 Dose: 0.05 mg Hydroxyzine HCl (Hydroxyzine Hcl 25 Mg Tab) 50 mg PO HSZ PRN PRN Reason: Insomnia Stop: 10/13/21 23:31 Last Admin: 09/14/21 00:02 Dose: 50 mg Hydroxyzine HCl (Hydroxyzine Hcl 25 Mg Tab) 25 mg PO Q4H PRN PRN Reason: Anxiety Stop: 10/13/21 23:31 Last Admin: 09/17/21 13:02 Dose: 25 mg Magnesium Hydroxide (Magnesium Hydroxide Susp 30 Ml Udc) 30 ml PO DAILY PRN PRN Reason: Constipation Stop: 10/13/21 23:31 Mirtazapine (Mirtazapine Tab 15 Mg Tab) 7.5 mg PO HS MALIKA Stop: 10/14/21 21:59 Last Admin: 09/16/21 21:43 Dose: 7.5 mg Sodium Chloride (Sodium Chloride 0.65% Na Soln 45 Ml ([place])) 1 - 2 sprays NA PRN PRN PRN Reason: Nasal Dryness/Congestion Stop: 10/13/21 23:31 Mental Health & Subst Abuse Tx Psychiatrist Name of Psychiatrist: Oliver Monroy Psychiatrist's Date of Appointment with Psychiatrist: 10/02/21 Time of Appointment with Psychiatrist: 2:30 PM Psychiatric Appointment Comment: [address] [facility] [address] Therapist Name of Therapist: [facility] Shaista Therapist's Date of Therapist Appointment: 09/29/21 Time of Therapist Appointment: 11:00 AM Therapy Appointment Comment: [address] [address], [place] [address] Data Operations Manager Name of Data Operations Manager: n/a Post Discharge Appointments Primary Care Physician Name Of Family Doctor: [facility] - Dr. Montoya
[2021-09-17] MEDS: MIRTAZAPINE TAB 15 MG TAB PO SCH (22:05)
[2021-09-18] MEDS: cloNIDine HCL 0.1 MG TAB PO SCH ×2 (08:52→21:26)
[2021-09-18] MEDS: buPROPion XL 300 MG TABCR PO SCH (08:52)
[2021-09-18] MEDS: hydrOXYzine HCl 25 MG TAB PO PRN (12:26)
--- NOTE | 2021-09-18 16:14 | Psychiatric Progress Note ---
Date of Service September 18, 2021 Impression / Recommendations Impression The patient is a 31 year old man who was admitted for worsening depression, anxiety and SI with plan to overdose in the context of worsening stress and a recent breakup. Diagnostically consistent with MDD, severe with anxious distress, has some longer term symptoms of possible ADHD given long history of concentration difficulties but difficult to fully assess in context of current anxiety and depression. The patient is deemed unstable and requires psychiatric hospitalization for diagnostic clarification, safety and stabilization, medication management and development of further coping skills. 09/18/21: Ongoing severe depression and anxiety with intermittent suicidal ideation with plan, feels safe in the hospital and ongoing ruminative anxiety particularly intrusive thoughts related to his ex-girlfriend and friend. Tolerating the higher dose of Wellbutrin without any worsening of his tics. Continues to tolerate the clonidine. Given worsening insomnia and ongoing depression and anxiety he agrees to a dose increase of mirtazapine to help with this. (1) Severe single episode of major depressive disorder with anxiety: (2) Suicidal ideation: (3) Tic disorder: Plan 09/18/21: Increase mirtazapine to 15mg qhs, continue with Wellbutrin and clonidine. 09/17/21: Increase Wellbutrin to 300mg qAM. 09/16/21: Add clonidine 0.05 mg BID for tics, continue with mirtazapine and Wellbutrin. 09/15/2021: Continue with current medications and treatment plan. 09/14/21: The patient was admitted to the [facility] ([facility] mental health unit) on q15 min checks (behavioral with suicide precautions) for safety. The patient will participate in group, recreational, and milieu therapies and will be offered additional individual and family sessions as clinically appropriate. 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 Risk Factors Assessment Male: Yes : Yes Do You Have Access To A Gun?: No Health Problems: No Mental Health Diagnoses: Yes Substance Use Disorders: No Previous Attempt: No Family History of Suicide: No Previous Psychiatric Hospitalization: No Hopelessness: Yes Protective Factors Assessment Employed: Yes ([employer]) Stable Relationships: Yes Supportive Family: Yes Interval History Identifying Information ASHLEE QUINN is a 31-year-old M who currently lives in [place] with his brother, has no significant psychiatric history, and was admitted on 09/13/21 22:40 on a 201 voluntary commitment for depression and SI with a plan. Chief Complaint "I'm ok". Review of Systems Sleep Information Total Hours of Sleep: 5 Meal Information Percent Meal Consumed - Breakfast: 75 Percent Meal Consumed - Lunch: 75 Percent Meal Consumed - Dinner: 80 Subjective Subjective Patient was seen & assessed and interval progress reviewed with treatment team nursing and social work. Had a lot of difficulty with sleep last night which she attributes to having lots of ruminative, intrusive's about his ex-girlfriend and their mutual friend who she was intimate with. He found it very difficult to get these images and memories out of his mind even while trying to use various distraction strategies. This morning he again felt very overwhelmed with anxiety and depression and ruminative thoughts and experienced suicidal ideation but attempted various grounding techniques and after repeating them about 15 times found some relief. He has been using the Vistaril and found that this was helpful for breaking some of the ruminative thoughts and severe depression and anxiety in the moment. He had a higher dose of Wellbutrin today, he denies any side effects from this. Denies any worsening of his tics and continues to feel that they are significantly better with the addition of clonidine. He is considering telling his brother or other family members that he is in the hospital as he previously told them he was away on a camping trip but the prospect of this is very anxiety producing for him. Physical Exam Psychiatric Orientation: alert and oriented x 3 Apperance: appropriately dressed and appropriately groomed Eye Contact: good eye contact Motor Behavior: no abnormal motor movements Speech: normal rate/rhythm/volume of speech Affect: + depressed affect and + anxious affect Mood: + depressed mood and + anxious mood Thought Process: goal directed thought process Thought Content: reality based without delusions Suicidal Thoughts: denies suicidal intent; + reports suicidal thoughts (intermittent with plan if outside the hospital) and + reports suicidal plan Homicidal Thoughts: denies homicidal thoughts Hallucinations: no auditory hallucinations and no visual hallucinations Cognition: recent memory grossly intact, remote memory grossly intact, attention grossly intact and language grossly intact Estimated Intelligence: consistent with education level Insight: + fair insight Judgement: + fair judgement Vital Signs (Past 24 Hours) Last Vital Signs Temp 36.4 C L 09/18/21 06:00 Pulse 69 09/18/21 06:00 Resp 16 09/18/21 06:00 BP 112/68 09/18/21 08:48 Pulse Ox 97 09/18/21 06:00 O2 Del Method 09/18/21 06:00 Results & Data ([facility]) Current Inpatient Medications Current Inpatient Medications: Current Inpatient Medications Acetaminophen (Acetaminophen 325 Mg Tab) 650 mg PO Q4H PRN PRN Reason: Headache or Minor Fever Stop: 10/13/21 23:31 Al Hydrox/Mg Hydrox/Simethicone (Aluminum/Magnesium Susp 30 Ml Udc) 30 ml PO Q4H PRN PRN Reason: GI Upset Stop: 10/13/21 23:31 Bismuth Subsalicylate (Bismuth Subsalicylate Liqd 236 Ml) 15 ml PO PRN PRN PRN Reason: Loose Stool Stop: 10/13/21 23:31 Bupropion HCl (Bupropion Xl 300 Mg Tabcr) 300 mg PO QAM MALIKA Stop: 10/18/21 08:59 Last Admin: 09/18/21 08:52 Dose: 300 mg Clonidine HCl (Clonidine Hcl 0.1 Mg Tab) 0.05 mg PO BID MALIKA Stop: 10/16/21 20:59 Last Admin: 09/18/21 08:52 Dose: 0.05 mg Hydroxyzine HCl (Hydroxyzine Hcl 25 Mg Tab) 50 mg PO HSZ PRN PRN Reason: Insomnia Stop: 10/13/21 23:31 Last Admin: 09/14/21 00:02 Dose: 50 mg Hydroxyzine HCl (Hydroxyzine Hcl 25 Mg Tab) 25 mg PO Q4H PRN PRN Reason: Anxiety Stop: 10/13/21 23:31 Last Admin: 09/18/21 12:26 Dose: 25 mg Magnesium Hydroxide (Magnesium Hydroxide Susp 30 Ml Udc) 30 ml PO DAILY PRN PRN Reason: Constipation Stop: 10/13/21 23:31 Mirtazapine (Mirtazapine Tab 15 Mg Tab) 7.5 mg PO HS MALIKA Stop: 10/14/21 21:59 Last Admin: 09/17/21 22:05 Dose: 7.5 mg Sodium Chloride (Sodium Chloride 0.65% Na Soln 45 Ml ([place])) 1 - 2 sprays NA PRN PRN PRN Reason: Nasal Dryness/Congestion Stop: 10/13/21 23:31 Mental Health & Subst Abuse Tx Psychiatrist Name of Psychiatrist: Oliver Monroy Psychiatrist's Date of Appointment with Psychiatrist: 10/02/21 Time of Appointment with Psychiatrist: 2:30 PM Psychiatric Appointment Comment: [address] [facility] [address] Therapist Name of Therapist: [facility] Therapist's Date of Therapist Appointment: 09/29/21 Time of Therapist Appointment: 11:00 AM Therapy Appointment Comment: [address] [address] Ribbon Hanking Machine Operator Name of Ribbon Hanking Machine Operator: n/a Post Discharge Appointments Primary Care Physician Name Of Family Doctor: [facility] - Dr. Montoya
[2021-09-18] MEDS: MIRTAZAPINE TAB 15 MG TAB PO SCH (21:28)
[2021-09-19] MEDS: buPROPion XL 300 MG TABCR PO SCH (08:39)
[2021-09-19] MEDS: cloNIDine HCL 0.1 MG TAB PO SCH ×2 (08:39→18:26)
--- NOTE | 2021-09-19 15:23 | Psychiatric Progress Note ---
Date of Service September 19, 2021 Impression / Recommendations Impression The patient is a 31 year old man who was admitted for worsening depression, anxiety and SI with plan to overdose in the context of worsening stress and a recent breakup. Diagnostically consistent with MDD, severe with anxious distress, has some longer term symptoms of possible ADHD given long history of concentration difficulties but difficult to fully assess in context of current anxiety and depression. The patient is deemed unstable and requires psychiatric hospitalization for diagnostic clarification, safety and stabilization, medication management and development of further coping skills. 09/19/21: as per Dr. Rose above, improving (1) Severe single episode of major depressive disorder with anxiety: (2) Suicidal ideation: (3) Tic disorder: Plan 09/19/21: increase clonidine (with parameters for BP and p, patient aware of risk of bradycardia, etc) and shift to BID meals for better coverage of tics. 09/18/21: Increase mirtazapine to 15mg qhs, continue with Wellbutrin and clonidine. 09/17/21: Increase Wellbutrin to 300mg qAM. 09/16/21: Add clonidine 0.05 mg BID for tics, continue with mirtazapine and Wellbutrin. 09/15/2021: Continue with current medications and treatment plan. 09/14/21: The patient was admitted to the [facility] ([facility] inpatient mental health unit) on q15 min checks (behavioral with suicide precautions) for safety. The patient will participate in group, recreational, and milieu therapies and will be offered additional individual and family sessions as clinically appropriate. 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, close friends, supportive family Needs: safety and stabilization, medication adjustment, additional coping skills, increased outpatient services Suicide Risk Level Suicide Risk Level: Moderate (q15 min suicide checks) (SI is decreasing, good rapport with staff) Risk Factors Assessment Male: Yes : Yes Do You Have Access To A Gun?: No Health Problems: No Mental Health Diagnoses: Yes Substance Use Disorders: No Previous Attempt: No Family History of Suicide: No Previous Psychiatric Hospitalization: No Hopelessness: Yes Protective Factors Assessment Employed: Yes ([employer]) Stable Relationships: Yes Supportive Family: Yes Interval History Identifying Information ASHLEE QUINN is a 31-year-old M who currently lives in [place] with his brother, has no significant psychiatric history, and was admitted on 09/13/21 22:40 on a 201 voluntary commitment for depression and SI with a plan. Chief Complaint "I guess I'm relieved that my family knows but it was alot". Review of Systems Sleep Information Total Hours of Sleep: 6.5 Meal Information Percent Meal Consumed - Breakfast: 100 Percent Meal Consumed - Lunch: 100 Percent Meal Consumed - Dinner: 100 Subjective Subjective Patient was seen & assessed and interval progress reviewed with nursing and social work. Patient states he is tolerating medications. Had some difficult sleeping last night. prefers Vistaril to stay prn. He notes ongoing longstanding throat clearing tic. He is unsure how he will handle seeing his ex in classes, mutual shifts. 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 Otherwise still feels "fragile" around SI outside of hospital. Physical Exam Psychiatric Orientation: alert and oriented x 3 Apperance: appropriately dressed and appropriately groomed Eye Contact: good eye contact Motor Behavior: + abnormal motor movements (some blepharospasm, throat clearing only after mentioned) Speech: normal rate/rhythm/volume of speech Affect: + depressed affect and + anxious affect Mood: + depressed mood and + anxious mood Thought Process: goal directed thought process Thought Content: reality based without delusions Suicidal Thoughts: denies suicidal thoughts (but unable to contract outside of the hospital) and denies suicidal intent; + reports suicidal plan Homicidal Thoughts: denies homicidal thoughts Hallucinations: no auditory hallucinations and no visual hallucinations Cognition: recent memory grossly intact, remote memory grossly intact, attention grossly intact and language grossly intact Estimated Intelligence: consistent with education level Insight: + fair insight Judgement: + fair judgement Vital Signs (Past 24 Hours) Last Vital Signs Temp 36.7 C 09/19/21 06:49 Pulse 62 09/19/21 08:34 Resp 16 09/19/21 06:49 BP 123/79 09/19/21 08:34 Pulse Ox 99 09/18/21 21:30 O2 Del Method 09/18/21 21:30 Results & Data ([facility]) Current Inpatient Medications Current Inpatient Medications: Current Inpatient Medications Acetaminophen (Acetaminophen 325 Mg Tab) 650 mg PO Q4H PRN PRN Reason: Headache or Minor Fever Stop: 10/13/21 23:31 Al Hydrox/Mg Hydrox/Simethicone (Aluminum/Magnesium Susp 30 Ml Udc) 30 ml PO Q4H PRN PRN Reason: GI Upset Stop: 10/13/21 23:31 Bismuth Subsalicylate (Bismuth Subsalicylate Liqd 236 Ml) 15 ml PO PRN PRN PRN Reason: Loose Stool Stop: 10/13/21 23:31 Bupropion HCl (Bupropion Xl 300 Mg Tabcr) 300 mg PO QAM MALIKA Stop: 10/18/21 08:59 Last Admin: 09/19/21 08:39 Dose: 300 mg Clonidine HCl (Clonidine Hcl 0.1 Mg Tab) 0.1 mg PO BIDM MALIKA Stop: 10/19/21 17:44 Hydroxyzine HCl (Hydroxyzine Hcl 25 Mg Tab) 50 mg PO HSZ PRN PRN Reason: Insomnia Stop: 10/13/21 23:31 Last Admin: 09/14/21 00:02 Dose: 50 mg Hydroxyzine HCl (Hydroxyzine Hcl 25 Mg Tab) 25 mg PO Q4H PRN PRN Reason: Anxiety Stop: 10/13/21 23:31 Last Admin: 09/18/21 12:26 Dose: 25 mg Magnesium Hydroxide (Magnesium Hydroxide Susp 30 Ml Udc) 30 ml PO DAILY PRN PRN Reason: Constipation Stop: 10/13/21 23:31 Mirtazapine (Mirtazapine Tab 15 Mg Tab) 15 mg PO HS MALIKA Stop: 10/18/21 21:59 Last Admin: 09/18/21 21:28 Dose: 15 mg Sodium Chloride (Sodium Chloride 0.65% Na Soln 45 Ml ([place])) 1 - 2 sprays NA PRN PRN PRN Reason: Nasal Dryness/Congestion Stop: 10/13/21 23:31 Mental Health & Subst Abuse Tx Psychiatrist Name of Psychiatrist: Oliver Monroy Psychiatrist's Date of Appointment with Psychiatrist: 10/02/21 Time of Appointment with Psychiatrist: 2:30 PM Psychiatric Appointment Comment: [address] [facility] [address] Therapist Name of Therapist: [facility] Therapist's Date of Therapist Appointment: 09/29/21 Time of Therapist Appointment: 11:00 AM Therapy Appointment Comment: [address] [facility], [place] [id number] Filter Washer And Presser Name of Filter Washer And Presser: n/a Post Discharge Appointments Primary Care Physician Name Of Family Doctor: [facility] - Dr. Montoya
[2021-09-19] MEDS: hydrOXYzine HCl 25 MG TAB PO PRN (18:59)
[2021-09-19] MEDS: MIRTAZAPINE TAB 15 MG TAB PO SCH (22:18)
[2021-09-20] MEDS: cloNIDine HCL 0.1 MG TAB PO SCH ×2 (08:54→17:00)
[2021-09-20] MEDS: buPROPion XL 300 MG TABCR PO SCH (08:55)
[2021-09-20] MEDS: DOCUSATE SODIUM 100 MG CAP PO SCH ×2 (10:41→22:26)
[2021-09-20] MEDS: hydrOXYzine HCl 25 MG TAB PO PRN ×2 (15:00→22:28)
--- NOTE | 2021-09-20 16:43 | Psychiatric Progress Note ---
Date of Service September 20, 2021 Impression / Recommendations Impression The patient is a 31 year old man who was admitted for worsening depression, anxiety and SI with plan to overdose in the context of worsening stress and a recent breakup. Diagnostically consistent with MDD, severe with anxious distress, has some longer term symptoms of possible ADHD given long history of concentration difficulties but difficult to fully assess in context of current anxiety and depression. The patient is deemed unstable and requires psychiatric hospitalization for diagnostic clarification, safety and stabilization, medication management and development of further coping skills. 09/20/21: as per Dr. Rose above, improving (1) Severe single episode of major depressive disorder with anxiety: (2) Suicidal ideation: (3) Tic disorder: Plan 09/20/21: stool softener, experiencing some anticholintergic side effects to meds but manageable at this point. 09/19/21: increase clonidine (with parameters for BP and p, patient aware of risk of bradycardia, etc) and shift to BID meals for better coverage of tics. 09/18/21: Increase mirtazapine to 15mg qhs, continue with Wellbutrin and clonidine. 09/17/21: Increase Wellbutrin to 300mg qAM. 09/16/21: Add clonidine 0.05 mg BID for tics, continue with mirtazapine and Wellbutrin. 09/15/2021: Continue with current medications and treatment plan. 09/14/21: The patient was admitted to the [facility] ([facility] mental health unit) on q15 min checks (behavioral with suicide precautions) for safety. The patient will participate in group, recreational, and milieu therapies and will be offered additional individual and family sessions as clinically appropriate. 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 Chief Complaint "I'm ready for my parents to know more." Review of Systems Sleep Information Total Hours of Sleep: 6.5 Meal Information Percent Meal Consumed - Breakfast: 75 Percent Meal Consumed - Lunch: 100 Percent Meal Consumed - Dinner: 100 Subjective Subjective Patient was seen & assessed and interval progress reviewed with nursing and social work. complains of some hard stool and is requesting stool softener. Also notes dry mouth and vivid dreams but overall feels "right direction" on sleep. Physical Exam Psychiatric Orientation: alert and oriented x 3 Apperance: appropriately dressed and appropriately groomed Eye Contact: good eye contact Motor Behavior: + abnormal motor movements (some blepharospasm, throat clearing only after mentioned) Speech: normal rate/rhythm/volume of speech Affect: + depressed affect and + anxious affect Mood: + depressed mood and + anxious mood Thought Process: goal directed thought process Thought Content: reality based without delusions Suicidal Thoughts: denies suicidal thoughts (but unable to contract outside of the hospital) and denies suicidal intent; + reports suicidal plan Homicidal Thoughts: denies homicidal thoughts Hallucinations: no auditory hallucinations and no visual hallucinations Cognition: recent memory grossly intact, remote memory grossly intact, attention grossly intact and language grossly intact Estimated Intelligence: consistent with education level Insight: + fair insight Judgement: + fair judgement Vital Signs (Past 24 Hours) Last Vital Signs Temp 36.6 C 09/20/21 06:45 Pulse 72 09/20/21 06:45 Resp 16 09/20/21 06:45 BP 100/64 09/20/21 06:45 Pulse Ox 98 09/19/21 20:11 O2 Del Method 09/19/21 20:11 Results & Data ([facility] [[email or web address] Current Inpatient Medications Current Inpatient Medications: Current Inpatient Medications Acetaminophen (Acetaminophen 325 Mg Tab) 650 mg PO Q4H PRN PRN Reason: Headache or Minor Fever Stop: 10/13/21 23:31 Al Hydrox/Mg Hydrox/Simethicone (Aluminum/Magnesium Susp 30 Ml Udc) 30 ml PO Q4H PRN PRN Reason: GI Upset Stop: 10/13/21 23:31 Bismuth Subsalicylate (Bismuth Subsalicylate Liqd 236 Ml) 15 ml PO PRN PRN PRN Reason: Loose Stool Stop: 10/13/21 23:31 Bupropion HCl (Bupropion Xl 300 Mg Tabcr) 300 mg PO QAM MALIKA Stop: 10/18/21 08:59 Last Admin: 09/20/21 08:55 Dose: 300 mg Clonidine HCl (Clonidine Hcl 0.1 Mg Tab) 0.1 mg PO BIDM MALIKA Stop: 10/19/21 17:44 Last Admin: 09/20/21 08:54 Dose: 0.1 mg Docusate Sodium (Docusate Sodium 100 Mg Cap) 100 mg PO BID MALIKA Stop: 10/20/21 10:19 Last Admin: 09/20/21 10:41 Dose: 100 mg Hydroxyzine HCl (Hydroxyzine Hcl 25 Mg Tab) 50 mg PO HSZ PRN PRN Reason: Insomnia Stop: 10/13/21 23:31 Last Admin: 09/14/21 00:02 Dose: 50 mg Hydroxyzine HCl (Hydroxyzine Hcl 25 Mg Tab) 25 mg PO Q4H PRN PRN Reason: Anxiety Stop: 10/13/21 23:31 Last Admin: 09/20/21 15:00 Dose: 25 mg Magnesium Hydroxide (Magnesium Hydroxide Susp 30 Ml Udc) 30 ml PO DAILY PRN PRN Reason: Constipation Stop: 10/13/21 23:31 Mirtazapine (Mirtazapine Tab 15 Mg Tab) 15 mg PO HS MALIKA Stop: 10/18/21 21:59 Last Admin: 09/19/21 22:18 Dose: 15 mg Sodium Chloride (Sodium Chloride 0.65% Na Soln 45 Ml ([place])) 1 - 2 sprays NA PRN PRN PRN Reason: Nasal Dryness/Congestion Stop: 10/13/21 23:31 Mental Health & Subst Abuse Tx Psychiatrist Name of Psychiatrist: Oliver Monroy Psychiatrist's Date of Appointment with Psychiatrist: 10/02/21 Time of Appointment with Psychiatrist: 2:30 PM Psychiatric Appointment Comment: [address] [place] [address] Therapist Name of Therapist: [facility] Therapist's Date of Therapist Appointment: 09/29/21 Time of Therapist Appointment: 11:00 AM Therapy Appointment Comment: [address] [id number], [place] [id number] Project Architect Name of Project Architect: n/a Post Discharge Appointments Primary Care Physician Name Of Family Doctor: [facility] - Dr. Montoya
[2021-09-20] MEDS: MIRTAZAPINE TAB 15 MG TAB PO SCH (22:25)
[2021-09-21] MEDS: buPROPion XL 300 MG TABCR PO SCH (08:43)
[2021-09-21] MEDS: DOCUSATE SODIUM 100 MG CAP PO SCH ×2 (08:43→20:48)
[2021-09-21] MEDS: cloNIDine HCL 0.1 MG TAB PO SCH ×2 (08:43→17:21)
[2021-09-21] MEDS: hydrOXYzine HCl 25 MG TAB PO PRN (15:16)
--- NOTE | 2021-09-21 15:18 | Psychiatric Progress Note ---
Date of Service September 21, 2021 Impression / Recommendations Impression The patient is a 31 year old man who was admitted for worsening depression, anxiety and SI with plan to overdose in the context of worsening stress and a recent breakup. Diagnostically consistent with MDD, severe with anxious distress, has some longer term symptoms of possible ADHD given long history of concentration difficulties but difficult to fully assess in context of current anxiety and depression. The patient is deemed unstable and requires psychiatric hospitalization for diagnostic clarification, safety and stabilization, medication management and development of further coping skills. 09/20/21: as per Dr. Rose above, more depressed with recurrent of SI since triggering phone call. (1) Severe single episode of major depressive disorder with anxiety: (2) Suicidal ideation: (3) Tic disorder: Plan 09/21/21: titrate Remeron 30 mg daily. Reviewed dosing ranges for Wellbutrin. Tics seem the same with throat clearing so far. BP/P stable. 09/20/21: stool softener, experiencing some anticholintergic side effects to meds but manageable at this point. 09/19/21: increase clonidine (with parameters for BP and p, patient aware of risk of bradycardia, etc) and shift to BID meals for better coverage of tics. 09/18/21: Increase mirtazapine to 15mg qhs, continue with Wellbutrin and clonidine. 09/17/21: Increase Wellbutrin to 300mg qAM. 09/16/21: Add clonidine 0.05 mg BID for tics, continue with mirtazapine and Wellbutrin. 09/15/2021: Continue with current medications and treatment plan. 09/14/21: [facility] on q15 min checks (behavioral with suicide precautions) for safety. The patient will participate in group, recreational, and milieu therapies and will be offered additional individual and family sessions as clinically appropriate. 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, close friends, supportive family Needs: safety and stabilization, medication adjustment, additional coping skills, increased outpatient services Suicide Risk Level Suicide Risk Level: Moderate (q15 min suicide checks) Suicide Risk Level Comments: Risk Factors Assessment Male: Yes : Yes Do You Have Access To A Gun?: No Health Problems: No Mental Health Diagnoses: Yes Substance Use Disorders: No Previous Attempt: No Family History of Suicide: No Previous Psychiatric Hospitalization: No Hopelessness: Yes Protective Factors Assessment 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 Chief Complaint "yeah my dad made me feel like I needed to get back to work and it was stressful". Review of Systems Sleep Information Total Hours of Sleep: 6 Meal Information Percent Meal Consumed - Breakfast: 20 Percent Meal Consumed - Lunch: 100 Percent Meal Consumed - Dinner: 0 Nutrition Comment: pt. reports poor appetite Subjective Subjective Patient was seen & assessed and interval progress reviewed with treatment team. Suicidal thoughts recurred yesterday, doesn't "blame" father but feels fragile and although is tolerating medications well he feels like he still struggles so with mood and to sleep, "Like I don't feel any different" He did not eat well at all last pm. Physical Exam Psychiatric Orientation: alert and oriented x 3 Apperance: appropriately dressed and appropriately groomed Eye Contact: good eye contact Motor Behavior: + abnormal motor movements (some blepharospasm, throat clearing) Speech: normal rate/rhythm/volume of speech Affect: + depressed affect and + anxious affect Mood: + depressed mood and + anxious mood Thought Process: goal directed thought process Thought Content: reality based without delusions Suicidal Thoughts: denies suicidal plan and denies suicidal intent; + reports suicidal thoughts Homicidal Thoughts: denies homicidal thoughts Hallucinations: no auditory hallucinations and no visual hallucinations Cognition: recent memory grossly intact, remote memory grossly intact, attention grossly intact and language grossly intact Estimated Intelligence: consistent with education level Insight: + fair insight Judgement: + fair judgement Vital Signs (Past 24 Hours) Last Vital Signs Temp 36.6 C 09/21/21 06:40 Pulse 76 09/21/21 06:41 Resp 16 09/21/21 06:40 BP 121/83 09/21/21 08:40 Pulse Ox 98 09/19/21 20:11 O2 Del Method 09/19/21 20:11 Results & Data ([facility]) Current Inpatient Medications Current Inpatient Medications: Current Inpatient Medications Acetaminophen (Acetaminophen 325 Mg Tab) 650 mg PO Q4H PRN PRN Reason: Headache or Minor Fever Stop: 10/13/21 23:31 Al Hydrox/Mg Hydrox/Simethicone (Aluminum/Magnesium Susp 30 Ml Udc) 30 ml PO Q4H PRN PRN Reason: GI Upset Stop: 10/13/21 23:31 Bismuth Subsalicylate (Bismuth Subsalicylate Liqd 236 Ml) 15 ml PO PRN PRN PRN Reason: Loose Stool Stop: 10/13/21 23:31 Bupropion HCl (Bupropion Xl 300 Mg Tabcr) 300 mg PO QAM MALIKA Stop: 10/18/21 08:59 Last Admin: 09/21/21 08:43 Dose: 300 mg Clonidine HCl (Clonidine Hcl 0.1 Mg Tab) 0.1 mg PO BIDM MALIKA Stop: 10/19/21 17:44 Last Admin: 09/21/21 08:43 Dose: 0.1 mg Docusate Sodium (Docusate Sodium 100 Mg Cap) 100 mg PO BID MALIKA Stop: 10/20/21 10:19 Last Admin: 09/21/21 08:43 Dose: 100 mg Hydroxyzine HCl (Hydroxyzine Hcl 25 Mg Tab) 50 mg PO HSZ PRN PRN Reason: Insomnia Stop: 10/13/21 23:31 Last Admin: 09/20/21 22:28 Dose: 50 mg Hydroxyzine HCl (Hydroxyzine Hcl 25 Mg Tab) 25 mg PO Q4H PRN PRN Reason: Anxiety Stop: 10/13/21 23:31 Last Admin: 09/20/21 15:00 Dose: 25 mg Magnesium Hydroxide (Magnesium Hydroxide Susp 30 Ml Udc) 30 ml PO DAILY PRN PRN Reason: Constipation Stop: 10/13/21 23:31 Mirtazapine (Mirtazapine Tab 15 Mg Tab) 30 mg PO HS MALIKA Stop: 10/21/21 21:59 Sodium Chloride (Sodium Chloride 0.65% Na Soln 45 Ml ([place])) 1 - 2 sprays NA PRN PRN PRN Reason: Nasal Dryness/Congestion Stop: 10/13/21 23:31 Mental Health & Subst Abuse Tx Psychiatrist Name of Psychiatrist: Oliver Mosherist's Date of Appointment with Psychiatrist: 10/02/21 Time of Appointment with Psychiatrist: 2:30 PM Psychiatric Appointment Comment: [address] [place] [address] Therapist Name of Therapist: [facility] Therapist's Date of Therapist Appointment: 09/29/21 Time of Therapist Appointment: 11:00 AM Therapy Appointment Comment: [phone] [phone], [place] [id number] Teacher Lip Reading Name of Teacher Lip Reading: n/a Post Discharge Appointments Primary Care Physician Name Of Family Doctor: [facility] - Dr. Montoya Primary Care Date of Appointment with PCP: 10/05/21 Time of Appointment with PCP: 7:50am Provider Appointment Comment: [address] [facility], [address], [place] [address]
[2021-09-21] MEDS: MIRTAZAPINE TAB 15 MG TAB PO SCH (20:49)
--- NOTE | 2021-09-22 06:49 | Psychiatric Progress Note ---
Date of Service September 22, 2021 Impression / Recommendations Impression The patient is a 31 year old man who was admitted for worsening depression, anxiety and SI with plan to overdose in the context of worsening stress and a recent breakup. Diagnostically consistent with MDD, severe with anxious distress, has some longer term symptoms of possible ADHD given long history of concentration difficulties but difficult to fully assess in context of current anxiety and depression. The patient is deemed unstable and requires psychiatric hospitalization for diagnostic clarification, safety and stabilization, medication management and development of further coping skills. 09/22/21: as per Dr. Rose above, ongoing depression, support plan falling through. Feels his tics are dramatically improved from admission as facial tics were creating discomfort and now just has throat clearing. (1) Severe single episode of major depressive disorder with anxiety: (2) Suicidal ideation: (3) Tic disorder: Plan 09/22/21: continue current meds and treatment plan. 09/21/21: titrate Remeron 30 mg daily. Reviewed dosing ranges for Wellbutrin. Tics seem the same with throat clearing so far. BP/P stable. 09/20/21: stool softener, experiencing some anticholintergic side effects to meds but manageable at this point. 09/19/21: increase clonidine (with parameters for BP and p, patient aware of risk of bradycardia, etc) and shift to BID meals for better coverage of tics. 09/18/21: Increase mirtazapine to 15mg qhs, continue with Wellbutrin and clonidine. 09/17/21: Increase Wellbutrin to 300mg qAM. 09/16/21: Add clonidine 0.05 mg BID for tics, continue with mirtazapine and Wellbutrin. 09/15/2021: Continue with current medications and treatment plan. 09/14/21: The patient was admitted to the [facility] ([facility] inpatient mental health unit) on q15 min checks (behavioral with suicide precautions) for safety. The patient will participate in group, recreational, and milieu therapies and will be offered additional individual and family sessions as clinically appropriate. 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, close friends, supportive family Needs: safety and stabilization, medication adjustment, additional coping skills, increased outpatient services Suicide Risk Level Suicide Risk Level: Moderate (q15 min suicide checks) Suicide Risk Level Comments: Risk Factors Assessment Male: Yes : Yes Do You Have Access To A Gun?: No Health Problems: No Mental Health Diagnoses: Yes Substance Use Disorders: No Previous Attempt: No Family History of Suicide: No Previous Psychiatric Hospitalization: No Hopelessness: Yes Protective Factors Assessment Employed: Yes ([employer]) Stable Relationships: Yes Supportive Family: Yes Interval History Identifying Information ASHLEE QUINN is a 31-year-old M who currently lives in [place] with his jigar roche, has no significant psychiatric history, and was admitted on 09/13/21 22:40 on a 201 voluntary commitment for depression and SI with a plan. Chief Complaint "nervous about family meeting. Review of Systems Sleep Information Total Hours of Sleep: 7 Meal Information Percent Meal Consumed - Breakfast: 20 Percent Meal Consumed - Lunch: 100 Percent Meal Consumed - Dinner: 100 Nutrition Comment: pt. reports poor appetite Subjective Subjective Patient was seen & assessed and interval progress reviewed with nursing and social work. family meeting was difficult, parents were not supportive and reportedly rude to patient and sw. Patient processed with staff. Physical Exam Psychiatric Orientation: alert and oriented x 3 Apperance: appropriately dressed and appropriately groomed Eye Contact: good eye contact Motor Behavior: + abnormal motor movements (some blepharospasm, throat clearing) Speech: normal rate/rhythm/volume of speech Affect: + depressed affect and + anxious affect Mood: + depressed mood and + anxious mood Thought Process: goal directed thought process Thought Content: reality based without delusions Suicidal Thoughts: denies suicidal plan and denies suicidal intent; + reports suicidal thoughts Homicidal Thoughts: denies homicidal thoughts Hallucinations: no auditory hallucinations and no visual hallucinations Cognition: recent memory grossly intact, remote memory grossly intact, attention grossly intact and language grossly intact Estimated Intelligence: consistent with education level Insight: + fair insight Judgement: + fair judgement Vital Signs (Past 24 Hours) Last Vital Signs Temp 36.7 C 09/21/21 20:27 Pulse 94 H 09/21/21 17:19 Resp 16 09/21/21 17:19 BP 132/88 09/21/21 17:19 Pulse Ox 98 09/19/21 20:11 O2 Del Method 09/19/21 20:11 Results & Data ([facility]) Current Inpatient Medications Current Inpatient Medications: Current Inpatient Medications Acetaminophen (Acetaminophen 325 Mg Tab) 650 mg PO Q4H PRN PRN Reason: Headache or Minor Fever Stop: 10/13/21 23:31 Al Hydrox/Mg Hydrox/Simethicone (Aluminum/Magnesium Susp 30 Ml Udc) 30 ml PO Q4H PRN PRN Reason: GI Upset Stop: 10/13/21 23:31 Bismuth Subsalicylate (Bismuth Subsalicylate Liqd 236 Ml) 15 ml PO PRN PRN PRN Reason: Loose Stool Stop: 10/13/21 23:31 Bupropion HCl (Bupropion Xl 300 Mg Tabcr) 300 mg PO QAM MALIKA Stop: 10/18/21 08:59 Last Admin: 09/21/21 08:43 Dose: 300 mg Clonidine HCl (Clonidine Hcl 0.1 Mg Tab) 0.1 mg PO BIDM MALIKA Stop: 10/19/21 17:44 Last Admin: 09/21/21 17:21 Dose: 0.1 mg Docusate Sodium (Docusate Sodium 100 Mg Cap) 100 mg PO BID MALIKA Stop: 10/20/21 10:19 Last Admin: 09/21/21 20:48 Dose: 100 mg Hydroxyzine HCl (Hydroxyzine Hcl 25 Mg Tab) 50 mg PO HSZ PRN PRN Reason: Insomnia Stop: 10/13/21 23:31 Last Admin: 09/20/21 22:28 Dose: 50 mg Hydroxyzine HCl (Hydroxyzine Hcl 25 Mg Tab) 25 mg PO Q4H PRN PRN Reason: Anxiety Stop: 10/13/21 23:31 Last Admin: 09/21/21 15:16 Dose: 25 mg Magnesium Hydroxide (Magnesium Hydroxide Susp 30 Ml Udc) 30 ml PO DAILY PRN PRN Reason: Constipation Stop: 10/13/21 23:31 Mirtazapine (Mirtazapine Tab 15 Mg Tab) 30 mg PO HS MALIKA Stop: 10/21/21 21:59 Last Admin: 09/21/21 20:49 Dose: 30 mg Sodium Chloride (Sodium Chloride 0.65% Na Soln 45 Ml (Ignacio)) 1 - 2 sprays NA PRN PRN PRN Reason: Nasal Dryness/Congestion Stop: 10/13/21 23:31 Mental Health & Subst Abuse Tx Psychiatrist Name of Psychiatrist: Oliver Monroy Psychiatrist's Date of Appointment with Psychiatrist: 10/02/21 Time of Appointment with Psychiatrist: 2:30 PM Psychiatric Appointment Comment: [address] [facility] [place] [address] Therapist Name of Therapist: [facility] - Shaista Therapist's Date of Therapist Appointment: 09/29/21 Time of Therapist Appointment: 11:00 AM Therapy Appointment Comment: [address] [id number], [place] [id number] Store Worker Name of Store Worker: n/a Post Discharge Appointments Primary Care Physician Name Of Family Doctor: [facility] - Dr. Montoya Primary Care Date of Appointment with PCP: 10/05/21 Time of Appointment with PCP: 7:50am Provider Appointment Comment: [address] [facility], [address], [place] [address]
[2021-09-22] MEDS: buPROPion XL 300 MG TABCR PO SCH (08:59)
[2021-09-22] MEDS: DOCUSATE SODIUM 100 MG CAP PO SCH ×2 (09:00→21:14)
[2021-09-22] MEDS: cloNIDine HCL 0.1 MG TAB PO SCH ×2 (09:02→17:32)
[2021-09-22] MEDS: hydrOXYzine HCl 25 MG TAB PO PRN (13:13)
[2021-09-22] MEDS: MIRTAZAPINE TAB 15 MG TAB PO SCH (21:14)
[2021-09-23] MEDS: buPROPion XL 300 MG TABCR PO SCH (08:29)
[2021-09-23] MEDS: cloNIDine HCL 0.1 MG TAB PO SCH ×2 (08:29→17:25)
[2021-09-23] MEDS: DOCUSATE SODIUM 100 MG CAP PO SCH ×2 (08:29→21:53)
--- NOTE | 2021-09-23 15:42 | Psychiatric Progress Note ---
Date of Service September 23, 2021 Impression / Recommendations Impression The patient is a 31 year old man who was admitted for worsening depression, anxiety and SI with plan to overdose in the context of worsening stress and a recent breakup. Diagnostically consistent with MDD, severe with anxious distress, has some longer term symptoms of possible ADHD given long history of concentration difficulties but difficult to fully assess in context of current anxiety and depression. 09/23/21: improving (1) Severe single episode of major depressive disorder with anxiety: (2) Suicidal ideation: (3) Tic disorder: Plan 09/23/21: finalize safety plan 09/22/21: continue current meds and treatment plan. 09/21/21: titrate Remeron 30 mg daily. Reviewed dosing ranges for Wellbutrin. Tics seem the same with throat clearing so far. BP/P stable. 09/20/21: stool softener, experiencing some anticholintergic side effects to meds but manageable at this point. 09/19/21: increase clonidine (with parameters for BP and p, patient aware of risk of bradycardia, etc) and shift to BID meals for better coverage of tics. 09/18/21: Increase mirtazapine to 15mg qhs, continue with Wellbutrin and clonidine. 09/17/21: Increase Wellbutrin to 300mg qAM. 09/16/21: Add clonidine 0.05 mg BID for tics, continue with mirtazapine and Wellbutrin. 09/15/2021: Continue with current medications and treatment plan. 09/14/21: The patient was admitted to the [facility] ([facility] mental health unit) on q15 min checks (behavioral with suicide precautions) for safety. The patient will participate in group, recreational, and milieu therapies and will be offered additional individual and family sessions as clinically appropriate. 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, close friends, supportive family Needs: safety and stabilization, medication adjustment, additional coping skills, increased outpatient services Suicide Risk Level Suicide Risk Level: Moderate (q15 min suicide checks) Suicide Risk Level Comments: Risk Factors Assessment Male: Yes : Yes Do You Have Access To A Gun?: No Health Problems: No Mental Health Diagnoses: Yes Substance Use Disorders: No Previous Attempt: No Family History of Suicide: No Previous Psychiatric Hospitalization: No Hopelessness: Yes Protective Factors Assessment Employed: Yes ([employer]) Stable Relationships: Yes Supportive Family: Yes Interval History Identifying Information ASHLEE QUINN is a 31-year-old M who currently lives in [place] with his brother, has no significant psychiatric history, and was admitted on 09/13/21 22:40 on a 201 voluntary commitment for depression and SI with a plan. Chief Complaint "My parents are my parents, I'm glad I dealt with it here". Review of Systems Sleep Information Total Hours of Sleep: 7 Meal Information Percent Meal Consumed - Breakfast: 100 Percent Meal Consumed - Lunch: 100 Percent Meal Consumed - Dinner: 100 Subjective Subjective Patient was seen & assessed and interval progress reviewed with treatment team. He was appropriately tearful yesterday but more positive mood in the evening and is now very future focussed. He is pleased to work on his aftercare. He is tolerating medications. Physical Exam Psychiatric Orientation: alert and oriented x 3 Apperance: appropriately dressed and appropriately groomed Eye Contact: good eye contact Speech: normal rate/rhythm/volume of speech Affect: + anxious affect Mood: + depressed mood Thought Process: goal directed thought process Thought Content: reality based without delusions Suicidal Thoughts: denies suicidal thoughts Homicidal Thoughts: denies homicidal thoughts Hallucinations: no auditory hallucinations and no visual hallucinations Cognition: attention grossly intact and language grossly intact Vital Signs (Past 24 Hours) Last Vital Signs Temp 36.5 C 09/23/21 06:47 Pulse 86 09/23/21 06:48 Resp 16 09/23/21 06:47 BP 110/67 09/23/21 06:48 Pulse Ox 98 09/19/21 20:11 O2 Del Method 09/19/21 20:11 Results & Data ([facility]) Current Inpatient Medications Current Inpatient Medications: Current Inpatient Medications Acetaminophen (Acetaminophen 325 Mg Tab) 650 mg PO Q4H PRN PRN Reason: Headache or Minor Fever Stop: 10/13/21 23:31 Al Hydrox/Mg Hydrox/Simethicone (Aluminum/Magnesium Susp 30 Ml Udc) 30 ml PO Q4H PRN PRN Reason: GI Upset Stop: 10/13/21 23:31 Bismuth Subsalicylate (Bismuth Subsalicylate Liqd 236 Ml) 15 ml PO PRN PRN PRN Reason: Loose Stool Stop: 10/13/21 23:31 Bupropion HCl (Bupropion Xl 300 Mg Tabcr) 300 mg PO QAM MALIKA Stop: 10/18/21 08:59 Last Admin: 09/23/21 08:29 Dose: 300 mg Clonidine HCl (Clonidine Hcl 0.1 Mg Tab) 0.1 mg PO BIDM MALIKA Stop: 10/19/21 17:44 Last Admin: 09/23/21 08:29 Dose: 0.1 mg Docusate Sodium (Docusate Sodium 100 Mg Cap) 100 mg PO BID MALIKA Stop: 10/20/21 10:19 Last Admin: 09/23/21 08:29 Dose: 100 mg Hydroxyzine HCl (Hydroxyzine Hcl 25 Mg Tab) 50 mg PO HSZ PRN PRN Reason: Insomnia Stop: 10/13/21 23:31 Last Admin: 09/20/21 22:28 Dose: 50 mg Hydroxyzine HCl (Hydroxyzine Hcl 25 Mg Tab) 25 mg PO Q4H PRN PRN Reason: Anxiety Stop: 10/13/21 23:31 Last Admin: 09/22/21 13:13 Dose: 25 mg Magnesium Hydroxide (Magnesium Hydroxide Susp 30 Ml Udc) 30 ml PO DAILY PRN PRN Reason: Constipation Stop: 10/13/21 23:31 Mirtazapine (Mirtazapine Tab 15 Mg Tab) 30 mg PO HS MALIKA Stop: 10/21/21 21:59 Last Admin: 09/22/21 21:14 Dose: 30 mg Sodium Chloride (Sodium Chloride 0.65% Na Soln 45 Ml ([place])) 1 - 2 sprays NA PRN PRN PRN Reason: Nasal Dryness/Congestion Stop: 10/13/21 23:31 Mental Health & Subst Abuse Tx Psychiatrist Name of Psychiatrist: Oliver Monroy Psychiatrist's Date of Appointment with Psychiatrist: 10/02/21 Time of Appointment with Psychiatrist: 2:30 PM Psychiatric Appointment Comment: [address] [facility] [id number] Therapist Name of Therapist: [facility]- Paola Keenan Therapist's Date of Therapist Appointment: 09/29/21 Time of Therapist Appointment: 5:30p Therapy Appointment Comment: [address] [facility] [address], [place], [place] Airplane Charter Clerk Name of Airplane Charter Clerk: n/a Post Discharge Appointments Primary Care Physician Name Of Family Doctor: [facility] - Dr. Montoya (reschedule if needed) Primary Care Date of Appointment with PCP: 10/05/21 Time of Appointment with PCP: 7:50am Provider Appointment Comment: [address] [facility], [address], [place] [address] Contact Information Discharge Discharge Address: [facility] [place]
[2021-09-23] MEDS: MIRTAZAPINE TAB 15 MG TAB PO SCH (21:54)
[2021-09-24] MEDS: hydrOXYzine HCl 25 MG TAB PO PRN ×2 (04:52→22:52)
--- NOTE | 2021-09-24 06:45 | Discharge Summary ---
Date of Service September 25, 2021 History of Present Illness As per Dr. Rose on admission: Alex presents for psychiatric admission for worsening depression, anxiety and SI with a plan of overdosing on tylenol or benadryl in the context of a recent breakup last week and stress from the finals of school. He presented to the ED as he felt unable to remain safe at home due to intensifying SI. He told his family he was going camping so they wouldn't worry that he's here. He endorses worsening depression symptoms over the last two weeks including hopelessness, helplessness, worthlessness, self-guilt, decreased energy, decreased motivation, anhedonia (used to enjoy movies and now no interest in watching then or playing card games), decreased sleep, decreased appetite with weight loss of about 15lbs over the last two weeks due to nausea and diarrhea, long history of difficulty with concentration and SI. He endorses anxiety symptoms including excessive worry, restlessness, fatigue, some irritability, muscle tension, insomnia, and maybe a panic attack this last week that came on out of nowhere. He previously took Paxil 20mg in late June for about 1 week for stress related to finals and then stopped it and then restarted it at 20mg last week after the breakup. He's noticed restlessness from the Paxil. He was taking it at night. Further history per note by supervisor graphite on 09/13/21: "He feels like his "mind shattered into pieces" and has struggled eating and drinking since. He is only sleeping about 3 hours a night, causing him daytime sleepiness and interfering with his work. When asked about SI, he became tearful and admitted that he has had thoughts of killing himself. He states he does not want to do that because he has family who loves and cares for him, yet nonetheless the thoughts persist. He has had them for about two weeks now and has difficulty controlling them. He has thought of overdosing on Tylenol or Benadryl as a means to do this, but has not made any effort to complete this plan." He had a syncopal event earlier this week and was evaluated in the ED and treated for dehydration. Had a history of diverticulitis a few months ago with similar GI symptoms and a bland diet helped. Psychiatric ROS notable for no history of cece, psychosis, OCD, PTSD or eating disorder including no history of binging/purging. Physical Exam Psychiatric See admission H&P and DOD assessment. Vital Signs (Past 24 Hours) Last Vital Signs Temp 36.9 C 09/24/21 06:41 Pulse 86 09/24/21 06:41 Resp 16 09/24/21 06:41 BP 104/65 09/24/21 06:41 Pulse Ox 98 09/19/21 20:11 O2 Del Method 09/19/21 20:11 Principal Diagnosis major depressive disorder Psychiatric Data See daily stay summary. In short, safety was maintained and the patient was cooperative with care. Medication changes included a trial of Wellbutrin with Remeron augmentation given poor sleep and appetite and they tolerated this well. He was also started on clonidine for facial and throat clearing tics with significant benefit. A family session was held which was challenging but patient processed well and safety plan was completed prior to discharge. It should be noted that on the day of discharge he admitted to use cannabis gummies regularly and that there was a gun safe in the home he lives in with his brother. He reported the guns aren't his nor does he have any combination to the safe and this will be confirmed with a relative prior to discharge. He denied having more than 1-2 Paxil at home and will dispose of them. Given that his appointment for med management is in 1 week and he was admitted with SI, only a 2 week supply of meds were sent. Re-reviewed risk of toxicity of his meds in OD including but not limited to bradycardia with clonidine and seizure with Wellbutrin. Day of Discharge Assessment Today the patient voices readiness for discharge. They note improvement in mood and deny thoughts to harm self or others. Thoughts remain organized and they are improved from admission. There is no evidence of psychosis. They agree to take mediations as prescribed and keep follow-up appointments. They are stable for discharge to outpatient level of care. Transition of Care Transition Of Care Record: was reviewed with the patient Advance Directives Advance Directives Information Provided: Yes Advance Directives: No Mental Health Advance Directive: No Advance Directives on File: No Living Will: No Power of Agility Instructor: No Advance Directives Reason:: Declines as Mental Health Visit. Suicide Risk Level Suicide Risk Level Comments: Suicide risk at discharge is deemed low as the patient is no longer requiring 24-hr monitoring, has a safety plan, and is free of suicidal ideation at discharge. Risk Factors Assessment Male: Yes : Yes Do You Have Access To A Gun?: No Health Problems: No Mental Health Diagnoses: Yes Substance Use Disorders: No Previous Attempt: No Family History of Suicide: No Previous Psychiatric Hospitalization: No Hopelessness: Yes Protective Factors Assessment Employed: Yes ([employer]) Stable Relationships: Yes Supportive Family: Yes Tobacco Cessation at Discharge Tobacco Cessation Medication Prescribed at Discharge: Not Applicable/Non-Smoker Total Time Total Time Spent: Greater Than 30 Minutes Total Time Includes: Examination of the patient, Discharge Planning and Medication Reconciliation Discharge Data Lab Results 09/13/21 09/13/21 09/13/21 20:14 20:14 20:14 WBC 7.34 RBC 4.96 Hgb 15.4 Hct 42.6 MCV 85.9 MCH 31.0 MCHC 36.2 H RDW Std Deviation 37.2 RDW Coeff of Jay 11.9 Plt Count 248 MPV 9.1 L Immature Gran % (Auto) 0.1 Neut % (Auto) 53.9 Lymph % (Auto) 34.9 [place] % (Auto) 10.1 Eos % (Auto) 0.7 Baso % (Auto) 0.3 Neut # (Auto) 3.96 Lymph # (Auto) 2.56 [place] # (Auto) 0.74 Eos # (Auto) 0.05 Baso # (Auto) 0.02 Immature Gran # (Auto) 0.01 Sodium 139 Potassium 3.5 Chloride 108 H Carbon Dioxide 22 Anion Gap 9 BUN 13 Creatinine 0.95 Est Cr Clr Drug Dosing 60.5 Est GFR ( Amer) 124.9 Est GFR (Non-Af Amer) 107.7 BUN/Creatinine Ratio 13.7 Glucose 96 Calcium 8.9 Total Bilirubin 0.8 AST 16 ALT 13 Alkaline Phosphatase 47 Total Protein 7.4 Albumin 4.6 Globulin 2.8 Albumin/Globulin Ratio 1.6 TSH 1.552 Urine Color Urine Appearance Urine pH Ur Specific New Site Urine Protein Urine Glucose (UA) Urine Ketones Urine Blood Urine Nitrite Urine Bilirubin Urine Urobilinogen Ur Leukocyte Esterase Salicylates Urine Opiates Screen Ur Methadone, Qual Acetaminophen Urine Barbiturates Ur Phencyclidine (PCP) U Amphetamin/Meth Scrn MDMA (Ecstasy) Screen U Benzodiazepines Scrn Ur Cocaine Metabolite U Marijuana (THC) Screen U Marijuana THC Carboxy Drug Screen Comment Ethyl Alcohol mg/dL SARS-CoV-2, RNA, NAAT 09/13/21 09/13/21 09/13/21 20:14 20:14 20:14 WBC RBC Hgb Hct MCV MCH MCHC RDW Std Deviation RDW Coeff of Jay Plt Count MPV Immature Gran % (Auto) Neut % (Auto) Lymph % (Auto) [place] % (Auto) Eos % (Auto) Baso % (Auto) Neut # (Auto) Lymph # (Auto) [place] # (Auto) Eos # (Auto) Baso # (Auto) Immature Gran # (Auto) Sodium Potassium Chloride Carbon Dioxide Anion Gap BUN Creatinine Est Cr Clr Drug Dosing Est GFR ( Amer) Est GFR (Non-Af Amer) BUN/Creatinine Ratio Glucose Calcium Total Bilirubin AST ALT Alkaline Phosphatase Total Protein Albumin Globulin Albumin/Globulin Ratio TSH Urine Color Urine Appearance Urine pH Ur Specific New Site Urine Protein Urine Glucose (UA) Urine Ketones Urine Blood Urine Nitrite Urine Bilirubin Urine Urobilinogen Ur Leukocyte Esterase Salicylates < 3.0 L Urine Opiates Screen Ur Methadone, Qual Acetaminophen < 3 L Urine Barbiturates Ur Phencyclidine (PCP) U Amphetamin/Meth Scrn MDMA (Ecstasy) Screen U Benzodiazepines Scrn Ur Cocaine Metabolite U Marijuana (THC) Screen U Marijuana THC Carboxy Drug Screen Comment Ethyl Alcohol mg/dL < 10.0 SARS-CoV-2, RNA, NAAT NEGATIVE 09/13/21 09/13/21 09/13/21 20:20 20:20 20:20 WBC RBC Hgb Hct MCV MCH MCHC RDW Std Deviation RDW Coeff of Jay Plt Count MPV Immature Gran % (Auto) Neut % (Auto) Lymph % (Auto) [place] % (Auto) Eos % (Auto) Baso % (Auto) Neut # (Auto) Lymph # (Auto) [place] # (Auto) Eos # (Auto) Baso # (Auto) Immature Gran # (Auto) Sodium Potassium Chloride Carbon Dioxide Anion Gap BUN Creatinine Est Cr Clr Drug Dosing Est GFR ( Amer) Est GFR (Non-Af Amer) BUN/Creatinine Ratio Glucose Calcium Total Bilirubin AST ALT Alkaline Phosphatase Total Protein Albumin Globulin Albumin/Globulin Ratio TSH Urine Color Dark Yellow Urine Appearance Clear Urine pH 6.5 Ur Specific New Site 1.031 H Urine Protein Negative Urine Glucose (UA) Negative Urine Ketones Trace H Urine Blood Negative Urine Nitrite Negative Urine Bilirubin Negative Urine Urobilinogen Negative Ur Leukocyte Esterase Negative Salicylates Urine Opiates Screen Neg Ur Methadone, Qual Neg Acetaminophen Urine Barbiturates Neg Ur Phencyclidine (PCP) Neg U Amphetamin/Meth Scrn Neg MDMA (Ecstasy) Screen Neg U Benzodiazepines Scrn Neg Ur Cocaine Metabolite Neg U Marijuana (THC) Screen Pos H U Marijuana THC Carboxy 68 H Drug Screen Comment SEE NOTE Ethyl Alcohol mg/dL SARS-CoV-2, RNA, NAAT Hospital Course (1) Severe single episode of major depressive disorder with anxiety: (2) Suicidal ideation: (3) Tic disorder: Plan 09/23/21: finalize safety plan 09/22/21: continue current meds and treatment plan. 09/21/21: titrate Remeron 30 mg daily. Reviewed dosing ranges for Wellbutrin. Tics seem the same with throat clearing so far. BP/P stable. 09/20/21: stool softener, experiencing some anticholintergic side effects to meds but manageable at this point. 09/19/21: increase clonidine (with parameters for BP and p, patient aware of risk of bradycardia, etc) and shift to BID meals for better coverage of tics. 09/18/21: Increase mirtazapine to 15mg qhs, continue with Wellbutrin and clonidine. 09/17/21: Increase Wellbutrin to 300mg qAM. 09/16/21: Add clonidine 0.05 mg BID for tics, continue with mirtazapine and Wellbutrin. 09/15/2021: Continue with current medications and treatment plan. 09/14/21: The patient was admitted to the [facility] ([facility] mental health unit) on q15 min checks (behavioral with suicide precautions) for safety. The patient will participate in group, recreational, and milieu therapies and will be offered additional individual and family sessions as clinically appropriate. -Start Wellbutrin XL 150mg qd -Mirtazapine 7.5mg qhs -Discontinue Paxil Mental Health & Subst Abuse Tx Psychiatrist Name of Psychiatrist: Oliver Monroy Psychiatrist's Date of Appointment with Psychiatrist: 10/02/21 Time of Appointment with Psychiatrist: 2:30 PM Psychiatric Appointment Comment: [address] [address] Therapist Name of Therapist: [facility]- Paola Keenan Therapist's Date of Therapist Appointment: 09/29/21 Time of Therapist Appointment: 5:30p Therapy Appointment Comment: [address], [place], [place] Supervisor Yard Name of Supervisor Yard: n/a Post Discharge Appointments Primary Care Physician Name Of Family Doctor: [facility] - Dr. Montoya (reschedule if needed) Primary Care Date of Appointment with PCP: 10/05/21 Time of Appointment with PCP: 7:50am Provider Appointment Comment: [address], [address], [place] [address] Smoking Cessation Counseling Tobacco Cessation Medication Prescribed at Discharge: Not Applicable/Non-Smoker Contact Information Discharge Discharge Address: [address] [place] [address] ROOPA Eid Discharge Plan Discharge Items Patient Disposition: Home - Self-Care Reason For Visit: MHE Discharge Diagnosis: major depressive disorder Activity: Resume your previous activity Non-emergency contact: Primary Care Provider, Psychiatrist and Therapist Call non-emergency contact if: you have any medication questions and your symptoms worsen Follow-up/Referrals: Juan Montoya [Primary Care Provider] - Diet: Regular Addtl Attending Provider Instructions: SPECIAL CARE INSTRUCTIONS: 1. Follow through with your scheduled aftercare appointments. If unable to keep an appointment, please call to reschedule. 2. Take your medication only as prescribed. Medication should not be changed or stopped without the approval of your doctor. In the event of worsening symptoms or concerns about side effects, contact your doctor immediately. 3. Utilize new healthy coping skills, anger management skills, and stress management skills learned during your hospitalization. Journal feelings and process them with a support person. Identify stressors or situations that may result in relapse, deterioration or inappropriate behaviors and develop a plan to deal with those issues. 4. If your coping skills are ineffective and you are in crisis, contact your outpatient providers for direction. If unable to reach your providers, please call the [facility] CRISIS LINE AT , go to the [facility] walk-in center at [address], [address], [place], or go to the closest Emergency Room. 5. Avoid alcohol and un-prescribed drugs. 6. You have been provided with the Mental Health Advance Directives Pamphlet for your review. 7. Your condition is stable for discharge to outpatient level of care, but recovery is an ongoing process. Ifthoughts to harm yourself or others return, follow the safety plan developed during your stay. Planning for a safe return home includes securing weapons. Our treatment team recommends weaponsbe removed from the home until your outpatient provider reassesses your progress. In rare cases where the items themselvescannot be removed, guns and ammunitionshould be secured separatelyand keys stored by a reliable personoutside of the home. If you were admitted on an involuntary commitment, the police or other legal authorities may be involved in this process. AFTERCARE APPOINTMENTS: * Please call your insurance company prior to your scheduled appointment to confirm your aftercare providers are covered. Take your insurance information to your appointments. WHO TO CALL AND WHEN: Medical Emergencies: For questions or emergencies related to your hospital stay, please contact the Inpatient Behavioral Health Unit at [phone]. A home health clinician is on-call 13/09 for the Behavioral Health Unit for emergencies At any time you feel your situation is an emergency, you may also call 911 immediately. Pending Studies at Discharge: No Stand-Alone Forms: My [facility], Smoking Cessation Medications and DC Order Prescriptions: New clonidine HCl 0.1 mg Tablet 0.1 mg PO BIDM 14 Days Qty: 28 0RF bupropion HCl 300 mg Tablet Extended Release 24 Hr 300 mg PO QAM Qty: 14 0RF hydroxyzine HCl 25 mg Tablet 25 mg PO Q4H PRN (Reason: anxiety/insomnia) Qty: 30 0RF Rx Instructions: may take 2 tabs if using at bedtime mirtazapine 30 mg tablet 30 mg PO HS 14 Days Qty: 14 0RF docusate sodium 100 mg Capsule 100 mg PO BID 30 Days Qty: 60 0RF Discontinued paroxetine HCl 20 mg tablet 20 mg PO QS Label Comments: Pt reports he is irregularly taking this when he feels he needs it. Discharge Orders: Discharge Order (Routine); Ordered 09/25/21 Ordered By: Carolyn Guzman Admission Data Admit Date/Time: 09/13/21 22:40 Attending Provider: Carolyn Guzman Admit Provider: Rosario Rose Primary Care Provider: Juan Montoya Other Interventions: FIDELY Interdisciplinary Discharge Planning Last Done: 09/23/21 14:11 Coding Level of Care Code 96537 D/C day mgmt > 30 min Diagnoses Severe single episode of major depressive disorder with anxiety F32.2; F41.8 Suicidal ideation R45.851 Tic disorder F95.9
[2021-09-24] MEDS: buPROPion XL 300 MG TABCR PO SCH (08:48)
[2021-09-24] MEDS: DOCUSATE SODIUM 100 MG CAP PO SCH ×2 (08:48→22:50)
[2021-09-24] MEDS: cloNIDine HCL 0.1 MG TAB PO SCH ×2 (08:48→17:35)
--- NOTE | 2021-09-24 14:35 | Psychiatric Progress Note ---
Date of Service September 24, 2021 Impression / Recommendations Impression The patient is a 31 year old man who was admitted for worsening depression, anxiety and SI with plan to overdose in the context of worsening stress and a recent breakup. Diagnostically consistent with MDD, severe with anxious distress, has some longer term symptoms of possible ADHD given long history of concentration difficulties but difficult to fully assess in context of current anxiety and depression. 09/24/21: ongoing anxiety (1) Severe single episode of major depressive disorder with anxiety: (2) Suicidal ideation: (3) Tic disorder: Plan 09/24/21: prn Vistaril effective and will likely be provided at discharge. 09/23/21: finalize safety plan 09/22/21: continue current meds and treatment plan. 09/21/21: titrate Remeron 30 mg daily. Reviewed dosing ranges for Wellbutrin. Tics seem the same with throat clearing so far. BP/P stable. 09/20/21: stool softener, experiencing some anticholintergic side effects to meds but manageable at this point. 09/19/21: increase clonidine (with parameters for BP and p, patient aware of risk of bradycardia, etc) and shift to BID meals for better coverage of tics. 09/18/21: Increase mirtazapine to 15mg qhs, continue with Wellbutrin and clonidine. 09/17/21: Increase Wellbutrin to 300mg qAM. 09/16/21: Add clonidine 0.05 mg BID for tics, continue with mirtazapine and Wellbutrin. 09/15/2021: Continue with current medications and treatment plan. 09/14/21: The patient was admitted to the [facility] ([facility] mental health unit) on q15 min checks (behavioral with suicide precautions) for safety. The patient will participate in group, recreational, and milieu therapies and will be offered additional individual and family sessions as clinically appropriate. 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, close friends, supportive family Needs: safety and stabilization, medication adjustment, additional coping skills, increased outpatient services Suicide Risk Level Suicide Risk Level: Moderate (q15 min suicide checks) Risk Factors Assessment Male: Yes : Yes Do You Have Access To A Gun?: No Health Problems: No Mental Health Diagnoses: Yes Substance Use Disorders: No Previous Attempt: No Family History of Suicide: No Previous Psychiatric Hospitalization: No Hopelessness: Yes Protective Factors Assessment Employed: Yes ([employer]) Stable Relationships: Yes Supportive Family: Yes Interval History Identifying Information ASHLEE QUINN is a 31-year-old M who currently lives in [place] with his brother, has no significant psychiatric history, and was admitted on 09/13/21 22:40 on a 201 voluntary commitment for depression and SI with a plan. Chief Complaint "I was really anxious this am". Review of Systems Sleep Information Total Hours of Sleep: 6.5 Meal Information Percent Meal Consumed - Breakfast: 100 Percent Meal Consumed - Lunch: 100 Percent Meal Consumed - Dinner: 100 Nutrition Comment: pt. reports poor appetite Subjective Subjective Patient was seen & assessed and interval progress reviewed with nursing and social work. The patient is continuing to process family relationships. He woke up very early and requested Vistaril for anxiety. Remains active in therapy groups. More positive in anticipation of discharge. Physical Exam Psychiatric Orientation: alert and oriented x 3 Apperance: appropriately dressed and appropriately groomed Eye Contact: good eye contact Motor Behavior: + abnormal motor movements (some blepharospasm, throat clearing) Speech: normal rate/rhythm/volume of speech Affect: + anxious affect Mood: + anxious mood Thought Process: goal directed thought process Thought Content: reality based without delusions Suicidal Thoughts: denies suicidal thoughts, denies suicidal plan and denies suicidal intent Homicidal Thoughts: denies homicidal thoughts Hallucinations: no auditory hallucinations and no visual hallucinations Cognition: attention grossly intact and language grossly intact Insight: + fair insight Judgement: + fair judgement Vital Signs (Past 24 Hours) Last Vital Signs Temp 36.9 C 09/24/21 06:41 Pulse 86 09/24/21 06:41 Resp 16 09/24/21 06:41 BP 104/65 09/24/21 06:41 Pulse Ox 98 09/19/21 20:11 O2 Del Method 09/19/21 20:11 Results & Data (U) Current Inpatient Medications Current Inpatient Medications: Current Inpatient Medications Acetaminophen (Acetaminophen 325 Mg Tab) 650 mg PO Q4H PRN PRN Reason: Headache or Minor Fever Stop: 10/13/21 23:31 Al Hydrox/Mg Hydrox/Simethicone (Aluminum/Magnesium Susp 30 Ml Udc) 30 ml PO Q4 H PRN PRN Reason: GI Upset Stop: 10/13/21 23:31 Bismuth Subsalicylate (Bismuth Subsalicylate Liqd 236 Ml) 15 ml PO PRN PRN PRN Reason: Loose Stool Stop: 10/13/21 23:31 Bupropion HCl (Bupropion Xl 300 Mg Tabcr) 300 mg PO QAM MALIKA Stop: 10/18/21 08:59 Last Admin: 09/24/21 08:48 Dose: 300 mg Clonidine HCl (Clonidine Hcl 0.1 Mg Tab) 0.1 mg PO BIDM MALIKA Stop: 10/19/21 17:44 Last Admin: 09/24/21 08:48 Dose: 0.1 mg Docusate Sodium (Docusate Sodium 100 Mg Cap) 100 mg PO BID MALIKA Stop: 10/20/21 10:19 Last Admin: 09/24/21 08:48 Dose: 100 mg Hydroxyzine HCl (Hydroxyzine Hcl 25 Mg Tab) 50 mg PO HSZ PRN PRN Reason: Insomnia Stop: 10/13/21 23:31 Last Admin: 09/20/21 22:28 Dose: 50 mg Hydroxyzine HCl (Hydroxyzine Hcl 25 Mg Tab) 25 mg PO Q4H PRN PRN Reason: Anxiety Stop: 10/13/21 23:31 Last Admin: 09/24/21 04:52 Dose: 25 mg Magnesium Hydroxide (Magnesium Hydroxide Susp 30 Ml Udc) 30 ml PO DAILY PRN PRN Reason: Constipation Stop: 10/13/21 23:31 Mirtazapine (Mirtazapine Tab 15 Mg Tab) 30 mg PO HS MALIKA Stop: 10/21/21 21:59 Last Admin: 09/23/21 21:54 Dose: 30 mg Sodium Chloride (Sodium Chloride 0.65% Na Soln 45 Ml ([place])) 1 - 2 sprays NA PRN PRN PRN Reason: Nasal Dryness/Congestion Stop: 10/13/21 23:31 Mental Health & Subst Abuse Tx Psychiatrist Name of Psychiatrist: Oliver Monroy Psychiatrist's Date of Appointment with Psychiatrist: 10/02/21 Time of Appointment with Psychiatrist: 2:30 PM Psychiatric Appointment Comment: [address] [place] [address] Therapist Name of Therapist: [facility]- Paola Keenan Therapist's Date of Therapist Appointment: 09/29/21 Time of Therapist Appointment: 5:30p Therapy Appointment Comment: [address] [facility] [address], [place], [place] Junior Art Director Name of Junior Art Director: n/a Post Discharge Appointments Primary Care Physician Name Of Family Doctor: [facility] - Dr. Montoya (reschedule if needed) Primary Care Date of Appointment with PCP: 10/05/21 Time of Appointment with PCP: 7:50am Provider Appointment Comment: [address], [address], [place] [address] Smoking Cessation Counseling Tobacco Cessation Medication Prescribed at Discharge: Not Applicable/Non-Smoker Contact Information Discharge Discharge Address: [facility] [place], [place]
[2021-09-24] MEDS: MIRTAZAPINE TAB 15 MG TAB PO SCH (22:50)
[2021-09-25] MEDS: cloNIDine HCL 0.1 MG TAB PO SCH (08:18)
[2021-09-25] MEDS: DOCUSATE SODIUM 100 MG CAP PO SCH (08:18)
[2021-09-25] MEDS: buPROPion XL 300 MG TABCR PO SCH (08:18)
== END 2021-09-25 12:52 | disposition home or self-care (01) | DRG 885 ==
LOC: ED 19:40 → SUATTDRO 22:40 → 3S 23:06
DX: F95.1 Chronic motor or vocal tic disorder; Z63.0 Problems in relationship with spouse or partner; Z79.899 Other long term (current) drug therapy; F32.2 Major depressive disorder, single episode, severe without psychotic features; F41.9 Anxiety disorder, unspecified; R45.851 Suicidal ideations